=== PATIENT | male | born 1935 | race Caucasian/White ===

== ENCOUNTER 2020-06-10 08:07 | Outpatient (CLI) | payer MEDICARE, BC, SELFPAY ==
--- NOTE | ~2020-06-10 | US_ITS ---
EXAMINATION: US arterial ankle brachial ind DATE: 06/10/2020 08:39 INDICATION: Bilateral lower limb pain. TECHNIQUE: Segmental pressures and plethysmographic and Doppler waveforms of the brachial and lower e xtremity arteries were obtained. COMPARISON: None. FINDINGS: Right and left brachial artery pressures of 126 mm Hg and 129 mm Hg, respectively, are concordant (no rmal difference <= 30 mmHg). The right ankle-brachial index (EDWIN) is 1.08 (normal >= 0.9-1.0). The right great toe-brachial index (TBI) is 0.64 (normal >= 0.65). Arterial Doppler waveforms are biphasic with brisk systolic upstrokes at both the right posterior tibial and dorsalis pedis arteries. The left EDWIN is 1.17. The left TBI is 0.71. Arterial Doppler waveforms are biphasic with brisk systol ic upstrokes of both the left posterior tibial and dorsalis pedis arteries. IMPRESSION: 1. No significant arterial occlusive disease to either lower limb with normal bilateral ABIs and TBIs . Reviewed, dictated and finalized at location A. IMPRESSION: 1. No significant arterial occlusive disease to either lower limb with normal b ilateral ABIs and TBIs.
== END 2020-06-10 08:08 | disposition home or self-care (01) ==
LOC: ANHIMG 08:12
PROVIDERS: PCP Family Medicine; Visit Provider Nurse Practitioner Family
DX: M79.661 Pain in right lower leg (principal); M79.662 Pain in left lower leg; R09.89 Other specified symptoms and signs involving the circulatory and respiratory systems
CPT/HCPCS: 93922

== ENCOUNTER 2020-12-02 09:46 | Outpatient (CLI) | payer MEDICARE, BC, SELFPAY ==
--- NOTE | ~2020-12-02 | CT_ITS ---
EXAMINATION: CT knee RT wo con DATE: 12/02/2020 10:25 INDICATION: Right knee pain. Mechanical complication of implant. TECHNIQUE: Computed tomography (CT) of the right knee was performed without intravenous contrast. Aut omated exposure control and iterative reconstruction technique were employed. The dose-length product was 432.43 mGy-cm. COMPARISON: Right knee radiographs 10/04/2015 FINDINGS: There is a total right knee arthroplasty with patellar resurfacing in near-anatomic alignme nt. No fracture. There is lucency in the bone adjacent to the patellar component and its proximal med ial aspect measuring 3 mm in thickness. There is osteolysis of distal femur adjacent to the arthropla sty anteriorly and adjacent to the medial arthroplasty post. There is lucency in the bone adjacent to the tibial component medially and laterally. There is a small knee joint effusion. IMPRESSION: 1. Total right knee arthroplasty in near-anatomic alignment with osteolysis of bone adjacent to the a rthroplasty in all 3 compartments, consistent with particle disease versus infection. 2. Small knee joint effusion. Reviewed, dictated and finalized at location A. ROOM WORKER IMPRESSION: 1. Total right knee arthroplasty in near-anatomic alignment with osteolysis of bone adjacent to the arthroplasty in all 3 compartments, consistent with partic le disease versus infection. 2. Small knee joint effusion.
--- NOTE | ~2020-12-02 | NM_ITS ---
EXAMINATION: NM bone 3 phase DATE: 12/02/2020 13:05 INDICATION: Mechanical complication of implant. Right knee pain. TECHNIQUE: 24.9 mCi Tc-99m HDP was administered intravenously. Scintigrams of the knees were obtained in angiographic, blood pool, and delayed phases. COMPARISON: Right knee CT 12/02/2020 FINDINGS: There is a right knee arthroplasty. There is increased activity adjacent to the arthroplast y components on all phases. There is increased activity in left knee at the medial and patellofemoral compartments without radiographic comparison, likely osteoarthritis. IMPRESSION: 1. Total right knee arthroplasty with increased activity adjacent to the arthroplasty components on all phases correlating with areas of osteolysis on CT, consistent with particle disease versus infect ion. Reviewed, dictated and finalized at location A. ONOMETRY TUTOR IMPRESSION: 1. Total right knee arthroplasty with increased activity adjacent to the arthr oplasty components on all phases correlating with areas of osteolysis on CT, co nsistent with particle disease versus infection.
== END 2020-12-02 09:47 | disposition home or self-care (01) ==
LOC: ANHIMG 09:55
PROVIDERS: PCP Nurse Practitioner Family; Visit Provider Orthopaedic Surgery
DX: T85.698A Other mechanical complication of other specified internal prosthetic devices, implants and grafts, initial encounter (principal); M25.461 Effusion, right knee
CPT/HCPCS: 73700; 78315; A9561

== ENCOUNTER 2020-12-03 10:12 | Outpatient (CLI) | payer MEDICARE, BC, SELFPAY ==
[2020-12-03 10:57] LABS: CRP 0.5 mg/dL (<1.0)
[2020-12-03 11:00] LABS: Erythrocyte Sedimentation Rate 26 mm/hr (0-20)
== END 2020-12-03 10:13 | disposition home or self-care (01) ==
LOC: ANHLAB 10:17
PROVIDERS: PCP Nurse Practitioner Family; Visit Provider Orthopaedic Surgery
DX: T85.698A Other mechanical complication of other specified internal prosthetic devices, implants and grafts, initial encounter (principal)
CPT/HCPCS: 36415; 85652; 86140

== ENCOUNTER 2020-12-07 12:32 | Outpatient (CLI) | payer MEDICARE, BC, SELFPAY ==
--- NOTE | ~2020-12-07 | XR_ITS ---
EXAMINATION: XR lg joint inject/asp w image DATE: 12/07/2020 13:48 INDICATION: Mechanical complication of right knee arthroplasty. TECHNIQUE: A time-out was performed to verify the patient's name, date of , and procedure to b e performed. The procedure including the risks, benefits, and alternatives was discussed with the pat ient. Risks discussed included bleeding and infection. The patient understood the risks and agreed to proceed. The skin overlying the right knee joint was prepped and draped in usual sterile fashion. Anesthetic was administered with 1% lidocaine subcutaneously. An 18 G needle was advanced under fluo roscopic guidance into the joint. Fluid was aspirated. There were no immediate complications. Fluoro scopy exposure time was 0.1 minutes. The total number of images was 1. FINDINGS: Real-time fluoroscopy demonstrates the needle in the right knee joint. IMPRESSION: 1. Fluoroscopy-guided right knee joint aspiration yielding 5 mL orange-juli fluid. Reviewed, dictated and finalized at location A. D MATE IMPRESSION: 1. Fluoroscopy-guided right knee joint aspiration yielding 5 mL orange-juli fl uid.
[2020-12-07 17:30] LABS: Appearance Synovial Fluid Hazy (Clear); Color Synovial Fluid Yellow (Colorless); Lymphocytes Synovial Fluid 6 %; Neutrophils Synovial Fluid 14 % (0-25); RBC Synovial Fluid 200 /uL (0-0)
[2020-12-07 17:31] LABS: Nucleated Cell Synovial Fluid 41 /uL (0-200); Source Synovial Fluid Synovial fluid
== END 2020-12-07 12:33 | disposition home or self-care (01) ==
PROVIDERS: PCP Nurse Practitioner Family; Visit Provider Orthopaedic Surgery
DX: T84.032A Mechanical loosening of internal right knee prosthetic joint, initial encounter (principal)
CPT/HCPCS: 20610; 77002; 87070; 87075; 87076; 87077; 87205; 88108; 89051

== ENCOUNTER 2020-12-31 08:22 | Emergency (ER) | payer MEDICARE, BC, SELFPAY ==
--- NOTE | ~2020-12-31 | XR_ITS ---
EXAMINATION: XR abdomen/kub 1V EXAM DATE: 12/31/2020 08:55 INDICATION: Constipation, abdominal distention. TECHNIQUE: Frontal projection(s) of the abdomen for interpretation. There is no prior study for jeison srinivasan. FINDINGS: There is moderate to large amount of colonic stool and gas. No small bowel dilation, nono bstructive bowel gas pattern. Calcifications in the pelvis are believed to be phleboliths. There i s no organomegaly suspected. There are bony degenerative changes. IMPRESSION: Moderate to large amount of colonic stool. Reviewed, dictated and finalized at location D. OUT SCARFING OPERATOR
[2020-12-31 08:26] VITALS: BP 143/94; PULSE 73; RESP 18; TEMP 37.1; O2SAT 95
--- NOTE | 2020-12-31 08:26 | ED.MALEGU ---
HPI - Male Genitourinary General Chief complaint: Urogenital-Male Stated complaint: SCROTAL BLEEDING Time Seen by Provider: 12/31/20 08:25 History of Present Illness HPI Narrative: 85 yo male presents to the ED for scrotal bleeding. He reports that he had just finished urinating when he began bleeding profusely from his scrotum. He soaked through a towel before placing papertowels over the area and coming to the ED. On arrival here there is no active bleeding. Additionally he reports that he has issues with chronic constipation. He reports having to strain and only producing small pebel like stools. This has been happening for several months. He starting taking fiber without significant change. Related Data Allergies Allergy/AdvReac Type Severity Reaction Status Date / Time No Known Allergies Allergy Verified 12/31/20 08:34 Review of Systems Review of Systems: All systems reviewed & are unremarkable except as noted in HPI and below Constitutional: Constitutional: Denies fever(s) and Denies weakness Eyes: Eyes: Reports no additional eye complaints ENT: Denies dizziness Cardiovascular: Cardiovascular: Denies chest pain Respiratory: Respiratory: Denies dyspnea Gastrointestinal: Gastrointestinal: Denies abdominal pain and Denies nausea Genitourinary: Genitourinary: Denies hematuria, Denies oliguria, Denies dysuria and Denies urinary frequency Musculoskeletal: Musculoskeletal: Denies back pain Neurologic: Denies dizziness and Denies weakness Hematologic/Lymphatic: Hematologic/Lymphatic: Denies easy bleeding and Denies easy bruising PMFSH Past Medical History Medical History Diabetic mononeuropathy associated with type 2 diabetes mellitus Diminished pulses in lower extremity Dysphagia Essential (primary) hypertension Left-sided chest wall pain Sleep apnea in adult Ventral hernia with obstruction but no gangrene Vitamin D deficiency Surgical History Surgical History History of total right knee replacement (~2012) Social History Social History Smoking status: Never smoker Second hand tobacco smoke exposure: No Alcohol intake: never Gender identity (if verbalized by the patient): Male Exam Const: General: no acute distress and alert Orientation/consciousness: patient oriented x3 HENMT: Head: normal to inspection Resp: Effort & Inspection: normal respiratory effort Auscultation: clear to auscultation bilaterally Cardio: Rate: regular rate Rhythm: regular rhythm GI: Inspection: distended GI Palp: No Tenderness to palpation present (GI) Percussion: No Fluid wave present : Testes: no testicular swelling and no testicular tenderness Other: punctate wound on scrotum. No bleeding. Multiple small dilated veins. Skin: General skin exam: normal color Neuro: General: patient oriented x3, moves all extremities and no focal motor deficits Cranial nerves: Yes CN's II-XII intact bilaterally Speech: normal speech Gait exam (Neuro): Normal gait present Extrem: General: normal to inspection Course Vital Signs Vital signs: Vital Signs Temperature 37.1 C 12/31/20 08:26 Pulse Rate 73 12/31/20 08:26 Respiratory Rate 18 12/31/20 08:26 Blood Pressure 143/94 H 12/31/20 08:26 Pulse Oximetry 95 12/31/20 08:26 Temperature 37.1 C 12/31/20 08:26 Pulse Rate 62 12/31/20 10:41 Respiratory Rate 16 12/31/20 10:41 Blood Pressure 116/70 12/31/20 10:41 Pulse Oximetry 98 12/31/20 10:41 MDM - Male Genitourinary MDM Narrative Medical decision making narrative: No active bleeding. Dilated veins on scrotum are the most likely source of the blood. These probably arose due to straining from constipation. Enema produced a small amount of hard stool. He was givne magnesium citrate and I will have him start a stoo
[2020-12-31] MEDS: MAGNESIUM CITRATE 300 ML BTL PO (09:16)
--- NOTE | 2020-12-31 10:38 | PC.NURSE ---
pt passed approx 8-10 small hard pieces of stool after mag citrate and fleets. pt still feels constipated with abd bloating and discomfort
[2020-12-31 10:41] VITALS: BP 116/70; PULSE 62; RESP 16; O2SAT 98
== END 2020-12-31 10:56 | disposition home or self-care (01) ==
PROVIDERS: Emergency Provider Emergency Medicine
DX: N50.1 Vascular disorders of male genital organs (principal); K59.00 Constipation, unspecified; I10 Essential (primary) hypertension; G47.30 Sleep apnea, unspecified; E55.9 Vitamin D deficiency, unspecified; E11.41 Type 2 diabetes mellitus with diabetic mononeuropathy; Z96.651 Presence of right artificial knee joint
CPT/HCPCS: 74018; 99283; A9270

== ENCOUNTER 2021-02-07 09:13 | Outpatient (CLI) | payer MEDICARE, BC, SELFPAY | END 2021-02-07 09:14 | LOC: ANHCOVIDVC 09:14 | DX: Z23 Encounter for immunization (principal) | CPT/HCPCS: 0001A; 91300 ==

== ENCOUNTER 2021-02-28 09:14 | Outpatient (CLI) | payer MEDICARE, BC, SELFPAY | END 2021-02-28 09:15 | disposition home or self-care (01) | LOC: ANHCOVIDVC 09:14 | PROVIDERS: PCP Family Medicine | DX: Z23 Encounter for immunization (principal) | CPT/HCPCS: 0002A; 91300 ==

== ENCOUNTER → 2021-03-15 03:27 | Outpatient (CLI) | payer MEDICARE, BC, SELFPAY ==
[2021-03-15 20:31] LABS: SARS-CoV-2 RNA PCR Negative
== END ==
PROVIDERS: PCP Family Medicine; Visit Provider Internal Medicine Gastroenterology
DX: Z01.812 Encounter for preprocedural laboratory examination (principal); Z20.822 Contact with and (suspected) exposure to COVID-19
CPT/HCPCS: C9803; U0003; U0005

== ENCOUNTER 2021-03-17 11:36 | Day surgery (SDC) | payer MEDICARE, BC, SELFPAY ==
[2021-03-09 12:46] VITALS: BMI 26.6
[2021-03-17 12:08] VITALS: BMI 27.2
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
[2021-03-17 12:25] VITALS: BP 155/88; PULSE 58; RESP 18; TEMP 36.6; O2SAT 97
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
[2021-03-17] MEDS: LACTATED RINGERS 1,000 ML 150 ML IV CONT (12:27)
[2021-03-17] MEDS: BENZOCAINE (*SP) 60 ML SPRAY CAN (HURRICAINE) 1 SPRAY MUCOUS MEM (13:01)
[2021-03-17 13:14] VITALS: BP 107/63; PULSE 45; RESP 16; O2SAT 95
[2021-03-17 13:24] VITALS: BP 109/65; PULSE 44; RESP 17; O2SAT 93
[2021-03-17 13:34] VITALS: BP 129/75; PULSE 45; RESP 19; O2SAT 94
== END 2021-03-17 13:45 | disposition home or self-care (01) ==
PROVIDERS: PCP Family Medicine; Visit Provider Internal Medicine Gastroenterology
PROC: 0DJ08ZZ Inspection of Upper Intestinal Tract, Via Natural or Artificial Opening Endoscopic (ICD-10-PCS; CPT 43235; principal; 2021-03-17 13:15)
DX: R13.10 Dysphagia, unspecified (principal); K21.00 Gastro-esophageal reflux disease with esophagitis, without bleeding; K29.50 Unspecified chronic gastritis without bleeding; K44.9 Diaphragmatic hernia without obstruction or gangrene; K22.4 Dyskinesia of esophagus; K29.70 Gastritis, unspecified, without bleeding; E55.9 Vitamin D deficiency, unspecified; E53.8 Deficiency of other specified B group vitamins; I10 Essential (primary) hypertension
CPT/HCPCS: 43249; 43239; 88305; 88342; C1726; J2704; J7120

== ENCOUNTER 2021-11-30 10:11 | Outpatient (CLI) | payer MEDICARE, BC, SELFPAY ==
--- NOTE | ~2021-11-30 | XR_ITS ---
XR foot RT min 3V DATE: 11/30/2021 10:27 INDICATION: Great toe pain proximally. No known injury. TECHNIQUE: 4 views COMPARISON: None FINDINGS: There is diffuse osteopenia. Mild plantar calcaneal enthesopathy. There is prominent osteoarthritic change at the tibiotalar joint. No fracture or dislocation, periosteal reaction or bone destruction, erosive change. 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 ENT SUPPORT SERVICES DIRECTOR
== END 2021-11-30 10:12 | disposition home or self-care (01) ==
LOC: ANHIMG 10:15
PROVIDERS: PCP Family Medicine; Visit Provider Family Medicine
DX: M85.871 Other specified disorders of bone density and structure, right ankle and foot (principal); M77.31 Calcaneal spur, right foot; M19.071 Primary osteoarthritis, right ankle and foot
CPT/HCPCS: 73630

== ENCOUNTER 2022-08-19 16:43 | Emergency (ER) | payer MEDICARE, BC, SELFPAY ==
[2022-08-19 16:48] VITALS: BP 165/66; PULSE 63; RESP 16; TEMP 37.1; O2SAT 95
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
[2022-08-19 18:24] VITALS: BP 116/68; PULSE 59; RESP 16; O2SAT 96
== END 2022-08-19 18:20 | disposition home or self-care (01) ==
PROVIDERS: Emergency Provider Emergency Medicine; PCP Family Medicine
DX: L03.012 Cellulitis of left finger (principal); I10 Essential (primary) hypertension; R73.03 Prediabetes; G47.30 Sleep apnea, unspecified; E53.8 Deficiency of other specified B group vitamins; E55.9 Vitamin D deficiency, unspecified; Z96.651 Presence of right artificial knee joint
CPT/HCPCS: 10060; 99283

== ENCOUNTER 2022-08-28 09:45 | Outpatient (CLI) | payer MEDICARE, BC, SELFPAY ==
[2022-08-28 20:06] LABS: Alanine Aminotransferase 35 U/L (6-50); Alkaline Phosphatase 193 U/L (38-126); Anion Gap 9 mmol/L (8-16); Aspartate Amino Transferase 46 U/L (17-59); Bilirubin,Total 0.4 mg/dL (0.2-1.3); Blood Urea Nitrogen 19 mg/dL (9-20); Calcium 9.5 mg/dL (8.4-10.2); Carbon Dioxide 23 mmol/L (22-30); Chloride 107 mmol/L (98-107); Estimated Glomerular Filt Rate > 60; Glucose 135 mg/dL (65-110); Potassium 4.6 mmol/L (3.4-5.0); Sodium 139 mmol/L (137-145)
[2022-08-28 20:36] LABS: Prostate Specific Antigen 6.8 ng/mL (< OR = 4.0)
== END 2022-08-28 09:46 | disposition home or self-care (01) ==
PROVIDERS: PCP Family Medicine; Visit Provider Family Medicine
DX: R73.03 Prediabetes (principal); I10 Essential (primary) hypertension; Z12.5 Encounter for screening for malignant neoplasm of prostate; G47.30 Sleep apnea, unspecified
CPT/HCPCS: 36415; 80053; 83036; 84153; G0103

== ENCOUNTER 2022-12-09 09:38 | Outpatient (CLI) | payer MEDICARE, BC, SELFPAY ==
--- NOTE | ~2022-12-09 | XR_ITS ---
XR foot RT 2V DATE: 12/09/2022 10:03 INDICATION: Right foot pain, great toe swelling TECHNIQUE: AP and lateral views COMPARISON: 11/30/2021 right foot FINDINGS: There is osteopenia. There is prominent osteophyte is at the tibiotalar joint. Mild plantar calcaneal enthesopathy. No recent fracture or dislocation, periosteal reaction or bone destruction is evident. No erosive stephanie nge. IMPRESSION: Osteopenia Tibiotalar osteoarthritis Mild plantar calcaneal enthesopathy Reviewed, dictated and finalized at location A. UTER LAB ASSISTANT
== END 2022-12-09 09:39 | disposition home or self-care (01) ==
PROVIDERS: PCP Family Medicine; Visit Provider Nurse Practitioner
DX: M85.871 Other specified disorders of bone density and structure, right ankle and foot (principal); M19.071 Primary osteoarthritis, right ankle and foot; M77.31 Calcaneal spur, right foot
CPT/HCPCS: 73620

== ENCOUNTER 2023-03-19 14:21 | Outpatient (CLI) | payer MEDICARE, BC, SELFPAY ==
[2023-03-19 18:40] LABS: Uric Acid 5.7 mg/dL (3.5-8.5)
== END 2023-03-19 14:22 | disposition home or self-care (01) ==
LOC: ANHGOSHLAB 14:22
PROVIDERS: PCP Family Medicine; Visit Provider Nurse Practitioner
DX: M79.676 Pain in unspecified toe(s) (principal)
CPT/HCPCS: 36415; 84550

== ENCOUNTER 2023-08-24 13:44 | Outpatient (CLI) | payer MEDICARE, BC, SELFPAY ==
[2023-08-24 16:36] LABS: Basophils Absolute Auto 0.1 K/mm3 (0.0-0.1); Basophils Percent Auto 0.4 % (0.2-1.2); Eosinophils Absolute Auto 0.3 K/mm3 (0-0.3); Eosinophils Percent Auto 2.2 % (0-4.4); Hematocrit 39.5 % (42.0-52.0); Hemoglobin 12.1 g/dL (14.0-18.0); Immature Granulocyte Absolute 0.02 K/mm3 (0.00-0.031); Immature Granulocyte Percent A 0.2 % (0-0.5); Lymphocytes Absolute Auto 2.29 K/mm3 (0.9-3.2); Lymphocytes Percent Auto 19.4 % (18.3-44.2); Mean Corpuscular HGB Conc 30.6 g/dl (32-36); Mean Corpuscular Hemoglobin 27.9 pg (26-34); Mean Platelet Volume 9.1 fl (7.4-10.4); Monocytes Absolute Auto 0.8 K/mm3 (0.1-0.6); Monocytes Percent Auto 6.8 % (2.6-8.5); Neutrophils Absolute Auto 8.4 K/mm3 (1.3-6.7); Platelet Count Result 316 k/mm3 (150-375); Red Blood Count 4.34 M/mm3 (4.6-6.20); Red Cell Distribution Width 14.3 % (11.5-14.5); White Blood Count 11.8 K/mm3 (4.5-10.0)
[2023-08-24 20:04] LABS: Alanine Aminotransferase 18 U/L (6-50); Albumin Level 4.3 g/dL (3.5-5.1); Alkaline Phosphatase 136 U/L (38-126); Anion Gap 7 mmol/L (8-16); Aspartate Amino Transferase 34 U/L (17-59); Bilirubin,Total 0.5 mg/dL (0.2-1.3); Blood Urea Nitrogen 22 mg/dL (9-20); Calcium 9.5 mg/dL (8.4-10.2); Carbon Dioxide 28 mmol/L (22-30); Chloride 104 mmol/L (98-107); Estimated Glomerular Filt Rate > 60; Glucose 93 mg/dL (65-110); Potassium 4.8 mmol/L (3.4-5.0); Sodium 139 mmol/L (137-145); Uric Acid 6.3 mg/dL (3.5-8.5)
[2023-08-28 03:48] LABS: Vitamin D 1,25 (OH)2 Total 27 pg/mL (18-72); Vitamin D2 1,25 (OH)2 <8 pg/mL; Vitamin D3 1,25 (OH)2 27 pg/mL
== END 2023-08-24 13:45 | disposition home or self-care (01) ==
PROVIDERS: PCP Family Medicine; Visit Provider Nurse Practitioner Family
DX: M79.674 Pain in right toe(s) (principal); E55.9 Vitamin D deficiency, unspecified; I10 Essential (primary) hypertension
CPT/HCPCS: 36415; 80053; 82652; 84550; 85025

== ENCOUNTER 2023-10-09 12:08 | Outpatient (CLI) | payer MEDICARE, BC, SELFPAY ==
[2023-10-09 13:12] LABS: CRP 2.9 mg/dL (<1.0)
[2023-10-09 13:23] LABS: Erythrocyte Sedimentation Rate 103 mm/hr (0-20)
== END 2023-10-09 12:09 | disposition home or self-care (01) ==
PROVIDERS: PCP Family Medicine
DX: Z96.651 Presence of right artificial knee joint (principal)
CPT/HCPCS: 36415; 85652; 86140

== ENCOUNTER → 2023-11-09 09:19 | Outpatient (CLI) | payer MEDICARE, BC, SELFPAY ==
--- NOTE | ~2023-11-09 | XR_ITS ---
EXAMINATION: XR foot RT min 3V DATE: 11/09/2023 09:37 INDICATION: Erythema medial to right first metatarsophalangeal joint. TECHNIQUE: 4 views of right foot were obtained. COMPARISON: Right foot radiographs 12/09/2022 FINDINGS: Bone alignment is normal. No fracture. There is mild osteoarthritis of first metatarsophala ngeal joint and some of the interphalangeal joints and midfoot joints. There is at least moderate ost eoarthritis of the ankle joint. There are enthesophytes at the posterior and plantar aspects of calca fransico tuberosity. IMPRESSION: 1. Polyarticular osteoarthritis. Reviewed, dictated and finalized at location A. CHING MACHINE OPERATOR
== END ==
PROVIDERS: PCP Nurse Practitioner Family; Visit Provider Nurse Practitioner Family
DX: M19.071 Primary osteoarthritis, right ankle and foot (principal); L53.8 Other specified erythematous conditions; M10.9 Gout, unspecified; E11.9 Type 2 diabetes mellitus without complications
CPT/HCPCS: 73630

== ENCOUNTER 2024-05-16 10:01 | Emergency (ER) | payer MEDICARE, BC, SELFPAY ==
--- NOTE | ~2024-05-16 | XR_ITS ---
EXAMINATION: XR wrist LT min 3V DATE: 05/16/2024 12:09 INDICATION: Radial sided right wrist pain TECHNIQUE: Posteroanterior, ulnar deviation, oblique, and lateral views of the right wrist were obtai taty. COMPARISON: none FINDINGS: Old healed fracture deformity at the distal radius. Likely secondary to millimeter ulnar positive cami iance. Alignment is otherwise normal. No acute fracture. Severe osteoarthritis at the first carpometa carpal joint. Moderate osteoarthritis at the first metacarpophalangeal joint and mild osteoarthritis at the wrist, midcarpal, triscaphe and at the visualized interphalangeal joints. Likely secondary sub articular cystic change at the proximal pole of the scaphoid. IMPRESSION: 1. 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 No acute osseous abnormality. Reviewed, dictated and finalized at location A. IMPRESSION: 1. 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 No acute osseous abnormality.
[2024-05-16 10:02] VITALS: BP 151/100; PULSE 69; RESP 18; TEMP 37.6; O2SAT 97
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
[2024-05-16] MEDS: ACETAMINOPHEN 325 MG TABLET 650 MG PO (12:46)
[2024-05-16 13:00] LABS: Basophils Percent Auto 0.2 % (0.2-1.2); Hematocrit 35.8 % (42.0-52.0); Hemoglobin 10.8 g/dL (14.0-18.0); Immature Granulocyte Absolute 0.09 K/mm3 (0.00-0.031); Immature Granulocyte Percent A 0.5 % (0-0.5); Lymphocytes Absolute Auto 1.16 K/mm3 (0.9-3.2); Mean Corpuscular HGB Conc 30.2 g/dl (32-36); Mean Corpuscular Hemoglobin 25.4 pg (26-34); Mean Platelet Volume 8.8 fl (7.4-10.4); Monocytes Absolute Auto 1.7 K/mm3 (0.1-0.6); Monocytes Percent Auto 10.2 % (2.6-8.5); Neutrophils Absolute Auto 13.6 K/mm3 (1.3-6.7); Neutrophils Percent Auto 82.1 % (45.5-73.1); Platelet Count Result 359 k/mm3 (150-375); Red Blood Count 4.26 M/mm3 (4.6-6.20); Red Cell Distribution Width 16.5 % (11.5-14.5); White Blood Count 16.6 K/mm3 (4.5-10.0)
[2024-05-16 13:10] LABS: Alanine Aminotransferase 18 U/L (6-50); Alkaline Phosphatase 153 U/L (38-126); Anion Gap 5 mmol/L (4-12); Aspartate Amino Transferase 31 U/L (17-59); Bilirubin,Total 1.2 mg/dL (0.2-1.3); Blood Urea Nitrogen 24 mg/dL (9-20); Calcium 9.1 mg/dL (8.4-10.2); Carbon Dioxide 28 mmol/L (22-30); Chloride 104 mmol/L (98-107); Estimated CRCL calculation 56 ml/min; Estimated Glomerular Filt Rate > 60; Glucose 127 mg/dL (65-110); Potassium 4.3 mmol/L (3.4-5.0); Sodium 137 mmol/L (137-145)
[2024-05-16 13:22] VITALS: BP 110/70; PULSE 85; RESP 14; TEMP 37.6; O2SAT 95
[2024-05-16 14:39] LABS: Appearance Urine Turbid (Clear); Bacteria Urine 4+ /hpf; Bilirubin Urine Negative (Negative); Blood Urine 2+ (Negative); Color Urine Dark Yellow (Yellow); Glucose Urine UA Negative (Negative); Ketones Urine Negative (Negative); Leukocyte Esterase Ur 3+ LEU/UL (Negative); Need Manual Microscopic Reviewed; Nitrate Urine Positive (Negative); Protein Urine 3+ mg/dL (Negative); RBC Urine 21-50 /hpf (0-2); Specific Grav Ur 1.019 (1.001-1.035); Squamous Epithelial Cell Urine None Seen /hpf (Few); WBC Urine >100 /hpf (0-3); pH Urine 7.5 (5.0-9.0)
[2024-05-16 14:41] LABS: Add Urine Microscopic? YES
[2024-05-16 15:34] VITALS: BP 102/45; PULSE 57; RESP 15; TEMP 36.6; O2SAT 96
== END 2024-05-16 15:38 | disposition home or self-care (01) ==
PROVIDERS: Emergency Provider Physician Assistant; PCP Family Medicine
DX: L03.114 Cellulitis of left upper limb (principal); N39.0 Urinary tract infection, site not specified; I10 Essential (primary) hypertension; R73.03 Prediabetes; E53.8 Deficiency of other specified B group vitamins; E55.9 Vitamin D deficiency, unspecified; G47.30 Sleep apnea, unspecified; Z96.651 Presence of right artificial knee joint
CPT/HCPCS: 36415; 73110; 80053; 81001; 85025; 87086; 87088; 99283; A9270

== ENCOUNTER 2024-05-30 14:24 | Outpatient (CLI) | payer MEDICARE, BC, SELFPAY ==
--- NOTE | ~2024-05-30 | CT_ITS ---
EXAMINATION: CT abdomen pelvis wo con DATE: 05/30/2024 14:57 INDICATION: Atonic bladder. TECHNIQUE: Computed tomography (CT) of the abdomen and pelvis was performed without intravenous contr ast. Automated exposure control and iterative reconstruction technique were employed. The dose-length product was 732.02 mGy-cm. COMPARISON: None. FINDINGS: The visualized portions of the lung bases demonstrate mild atelectasis. No pleural effusion . Cardiomegaly is noted. There are coronary artery calcifications. There is a trace pericardial effus ion. There is a small sliding hiatal hernia. The liver, gallbladder, spleen, pancreas, adrenal glands , and right kidney are normal. There are cysts in left kidney measuring up to 3.5 cm. The prostate is moderately enlarged. The bladder is compressed by a Gipson catheter. There are multiple diverticula i n the bladder. There is a 5 mm stone in a bladder diverticulum on the left. There is diverticulosis o f the colon without evidence of diverticulitis. There are no dilated loops of bowel. The appendix is normal. Aortic atherosclerosis is noted. There is mild right external iliac, left common iliac, left para-aortic, and aortocaval lymphadenopathy, likely reactive. There is no free intraperitoneal fluid. There is mild lumbar spondylosis. There is a chronic compression fracture of T11. IMPRESSION: 1. Multiple bladder diverticula. 2. Stone in a left bladder diverticulum. 3. Mild pelvic and retroperitoneal lymphadenopathy, likely reactive. Reviewed, dictated and finalized at location A.
== END 2024-05-30 14:25 | disposition home or self-care (01) ==
PROVIDERS: PCP Family Medicine; Visit Provider Urology
DX: N31.2 Flaccid neuropathic bladder, not elsewhere classified (principal); N32.3 Diverticulum of bladder
CPT/HCPCS: 74176

== ENCOUNTER 2024-06-11 10:08 | Emergency (ER) | payer MEDICARE, BC, SELFPAY ==
[2024-06-11 10:09] VITALS: BP 150/79; PULSE 96; RESP 20; TEMP 36.6; O2SAT 97
[2024-06-11 10:15] VITALS: BP 137/91; PULSE 96; RESP 16; O2SAT 94
[2024-06-11 11:15] VITALS: BP 116/97; PULSE 92; RESP 18; O2SAT 96
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
[2024-06-11 12:15] VITALS: BP 149/88; PULSE 94; RESP 20; O2SAT 98
[2024-06-11 12:44] LABS: Appearance Urine Turbid (Clear); Bacteria Urine 4+ /hpf; Bilirubin Urine 1+ (Negative); Blood Urine 3+ (Negative); Color Urine Red (Yellow); Glucose Urine UA Negative (Negative); Ketones Urine Negative (Negative); Leukocyte Esterase Ur 3+ LEU/UL (Negative); Need Manual Microscopic Reviewed; Nitrate Urine Positive (Negative); Non Pathogenic Casts >20; Protein Urine 3+ mg/dL (Negative); RBC Urine >100 /hpf (0-2); Specific Grav Ur 1.016 (1.001-1.035); Squamous Epithelial Cell Urine Many /hpf (Few); Triple Phosphate Crystal Urine Present /hpf; Urobilinogen Urine 0.2 mg/dL (<2.0); WBC Urine >100 /hpf (0-3)
[2024-06-11 12:46] LABS: Add Urine Microscopic? YES
--- NOTE | 2024-06-11 12:48 | PC.NURSE ---
Pts indwelling catheter bag changed to leg bag.
== END 2024-06-11 12:49 | disposition home or self-care (01) ==
PROVIDERS: Emergency Provider Emergency Medicine; PCP Family Medicine
DX: T83.098A Other mechanical complication of other urinary catheter, initial encounter (principal); I10 Essential (primary) hypertension; E53.8 Deficiency of other specified B group vitamins; E55.9 Vitamin D deficiency, unspecified; R73.03 Prediabetes; Z96.651 Presence of right artificial knee joint; Z79.899 Other long term (current) drug therapy; Y84.6 Urinary catheterization as the cause of abnormal reaction of the patient, or of later complication, without mention of misadventure at the time of the procedure
CPT/HCPCS: 51702; 81001; 87086; 99283

== ENCOUNTER 2024-06-26 01:13 | Day surgery (SDC) | payer MEDICARE, BC, SELFPAY ==
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
[2024-06-10 15:25] VITALS: BMI 25.1
--- NOTE | 2024-06-10 15:53 | PC.NURSE ---
Report to the Outpatient Waiting Room, entrance under the green pavilion located off [facility], at time __10:00AM on date ___06/26/24____. Planned Procedure Time: __12:00PM . Time changes happen often and if your time is changed the preop area will call you the afternoon before. - You and your visitor will be asked to self-screen and do not enter if you have any COVID symptoms. - A mask is optional within the hospital at this time. Patients may have clear liquids (water, carbonated beverages, clear teas, apple juice) until 3 hours prior to surgery with a maximum of 20 ounces. - No food from midnight until time of surgery - Infants may have breast milk until 4 hours before surgery, infant formula 6 hours prior to surgery. - Children will be allowed to drink immediately following surgery. If applicable, please bring a bottle or sippy cup to assist with drinking. Juice, water, soda, and popsicles are readily available. For infants on formula, please bring formula the day of surgery. Pacifiers are allowed. Take the following medications with a SIP of water the morning of surgery: ___AMLODIPINE DO NOT STOP ANY OF YOUR OTHER PRESCRIPTION MEDICATIONS PRIOR TO SURGERY ?EXCEPT THE FOLLOWING Medications to discontinue per physician ___HOLD ALL VITAMINS/SUPPLEMENTS 3 DAYS PRE-OP PER ANESTHESIA Date to take last dose 06/22/24 Please no make-up, nail costa rican, hairspray, perfume, deodorant, or body powder the day of surgery. No jewelry (including any body piercings) or valuables the day of surgery, leave them at home. Please take a shower or bath the night before, or the morning of, surgery with an antibacterial soap. Wear comfortable, loose fitting clothing. Children are encouraged to wear pajamas. - Jewelry must be removed prior to entering the operating room. Rings and piercings that are not removed may be cut off. - The hospital will not accept responsibility for valuables. - Please leave all valuables, including medications, at home the day of surgery. If you are going home after surgery, a licensed class b driver must drive you home. - NO public transportation without another adult if you receive anesthesia. - We recommend that an adult stay with you for 24 hours following discharge. - We also recommend that you do not drive, make important decision, drink alcoholic beverages, or take any drugs that were not prescribed by your health care provider for at least 24 hours after your discharge time. For Pediatric surgeries, we recommend two adults accompany the child home. Follow any additional instructions given to you from your surgeon. If you or anyone in your household have experienced Covid symptoms in the past week, please notify your surgeon or the nurse liaison at the phone number below for possible testing. Telephone instructions given to ___PATIENT and asked if any additional questions and then verbalized understanding. Patient advised to call surgeon office or pre surgery nurse liaison [phone] if any additional questions.
[2024-06-26] VITALS (12 sets, daily range): BP systolic 108–176; BP diastolic 61–88; PULSE 54–97; RESP 14–18; TEMP 35.7–36.9; O2SAT 94–100
--- NOTE | 2024-06-26 05:33 | WPDHPUPDATE1 ---
History and Physical Update Update Date/Time: 06/26/24 05:33 History and Physical has been reviewed, including an updated exam of the patient. There are NO changes in the patient's condition. Risks, benefits, and alternatives have been discussed and questions answered. Patient agrees to proceed with procedure.
--- NOTE | 2024-06-26 06:18 | WPDHPUPDATE1 ---
History and Physical Update Update Date/Time: 06/26/24 06:18 History and Physical has been reviewed, including an updated exam of the patient. There are NO changes in the patient's condition. Risks, benefits, and alternatives have been discussed and questions answered. Patient agrees to proceed with procedure.
[2024-06-26] MEDS: LACTATED RINGERS 1,000 ML 30 ML IV CONT (09:45)
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
[2024-06-26] MEDS: ceFAZolin 2 GM/D5W 50 ML 2 GM/50 ML BAG IVPB (12:04)
--- NOTE | 2024-06-26 13:34 | P.OP_ITS ---
Procedure Note - Detailed Date of Procedure 06/26/24 Pre-op Diagnosis BPH Post-op Diagnosis Same Procedure Performed TURP Surgeon Carrillo Nails MD Anesthesia General Description of Procedure The patient was brought to the operative suite where he is prepped and draped in routine sterile fashion while in the dorsal lithotomy position after the uneventful induction of a LMA anesthetic. A 27 Malay resectoscope sheath was placed into his bladder. He had no urethral strictures. The patient had trilobar hyperplasia with a small median lobe. The bladder itself was endoscopically normal, showing no mucosal hyperemia, intravesical neoplasm or foreign bodies. There was a single, orthotopic ureteral orifice bilaterally. These orifices were identified and preserved throughout the remainder of the procedure. Attention was first turned to resection of the median lobe. This resection was undertaken from the bladder neck to the verumontanum and carried out until the transverse fibers of the bladder neck were identified. The left lateral lobe was then resected starting at the 6 o'clock position, working counter clockwise to the 12 o'clock position. Again, resection was carried out from the bladder neck to the verumontanum until the capsular fibers of the prostate were identified. The right lateral lobe was resected in a similar fashion starting at the 6 o'clock position working clockwise to the 12 o'clock position and carried out until the capsular fibers of the prostate were identified. Apical tissue was then circumferentially resected. All chips were evacuated from the bladder using an [employer] evacuator. Hemostasis was obtained with electric cautery. The ureteral orifices were again inspected and found to be without injury. Estimated blood loss throughout this procedure was 50cc. The patient was taken to recovery room having tolerated this well. Estimated Blood Loss 50 Drains Yes Packing No Pathology None sent Complications No immediate complications Condition Stable
[2024-06-26] MEDS: fentaNYL CITRATE INJ (*CRX) 100 MCG/2 ML VIAL 25 MCG IV PUSH ×3 (13:55→14:15)
[2024-06-26] MEDS: HYOSCYAMINE SULFATE 0.125 MG TABLET SUBLINGUAL (14:44)
--- NOTE | 2024-06-26 15:26 | PC.NURSE ---
This patient, Sp Cody, was admitted to [address] [place] [address] Room 307-02. Patient/family oriented to hospital policies and general routines including ID bracelet, bed and alarms, visiting hours, pain management, procedures, bathroom and other care routines, personal items, smoking policy, room service/diet, and visiting hours. Information on how to activate the Rapid Response Team has been discussed. Patient/Family are encouraged to report perceived risks to care and to ask questions if they do not understand what they are told or what they should do.
[2024-06-26] MEDS: DEXTROSE 5%/LACTATED RINGERS 1,000 ML 125 ML IV CONT ×2 (15:40→23:47)
[2024-06-26] MEDS: DOCUSATE SODIUM 100 MG CAPSULE PO (17:38)
[2024-06-26] MEDS: ceFAZolin 1 GM/NS 50 ML 1 GM/50 ML BAG IVPB (19:53)
[2024-06-27] MEDS: ceFAZolin 1 GM/NS 50 ML 1 GM/50 ML BAG IVPB (03:04)
[2024-06-27 03:53] VITALS: BP 163/71; PULSE 71; RESP 18; TEMP 36.8; O2SAT 96
[2024-06-27 05:44] LABS: Hematocrit 31.1 % (42.0-52.0); Hemoglobin 9.4 g/dL (14.0-18.0)
[2024-06-27 05:55] LABS: Anion Gap 6 mmol/L (4-12); Blood Urea Nitrogen 16 mg/dL (9-20); Calcium 8.3 mg/dL (8.4-10.2); Carbon Dioxide 27 mmol/L (22-30); Chloride 100 mmol/L (98-107); Estimated CRCL calculation 70 ml/min; Estimated Glomerular Filt Rate > 60; Glucose 128 mg/dL (65-110); Potassium 3.7 mmol/L (3.4-5.0); Sodium 133 mmol/L (137-145)
--- NOTE | 2024-06-27 06:05 | WPDUROPN2 ---
Progress Note: A&P Assessment and Plan (1) BPH w urinary obs/LUTS: Code(s): N40.1 - Benign prostatic hyperplasia with lower urinary tract symptoms; N13.8 - Other obstructive and reflux uropathy Status: Acute Assessment and Plan: Doing well POD #1 Stop CBI now / voiding trial later this morning if urine remains clear. Subjective Subjective Date/Time Seen: 06/27/24 06:05 Interval history: Comfortable, no complaints Review of Systems Review of Systems: All systems reviewed & are unremarkable except as noted in HPI and below Exam Const: General: no acute distress Resp: Effort & Inspection: normal respiratory effort GI: Inspection: non-distended GI Palp: No abdominal tenderness and No Guarding due to palpation present (GI) Auscultation: normal bowel sounds Urinary Catheter: Urinary Catheter: patent and draining and urine clear Objective Data Vital Signs Vital Signs: Vital Signs - 24 hr 06/26/24 13:25 06/26/24 13:40 06/26/24 13:55 Temperature 97.0 F L Pulse Rate 54 L 56 L 56 L Respiratory Rate 14 18 18 Blood Pressure 138/80 173/88 H 176/86 H Pulse Oximetry 100 100 99 Oxygen Delivery Simple Face Mask Simple Face Mask Room Air Oxygen Flow Rate 8 8 06/26/24 14:10 06/26/24 14:25 06/26/24 14:40 Temperature Pulse Rate 57 L 58 L 59 L Respiratory Rate 16 14 16 Blood Pressure 162/86 H 172/86 H 176/85 H Pulse Oximetry 98 94 98 Oxygen Delivery Room Air Room Air Room Air Oxygen Flow Rate 06/26/24 15:05 06/26/24 15:20 06/26/24 15:50 Temperature 96.3 F L 96.6 F L 97.0 F L Pulse Rate 60 79 73 Respiratory Rate 16 18 18 Blood Pressure 154/74 H 108/76 117/61 Pulse Oximetry 99 97 95 Oxygen Delivery Oxygen Flow Rate 06/26/24 16:00 06/26/24 16:50 06/26/24 20:00 Temperature 97.4 F L 98.4 F Pulse Rate 97 62 Respiratory Rate 16 16 Blood Pressure 145/65 H 162/63 H Pulse Oximetry 97 94 Oxygen Delivery Room Air Oxygen Flow Rate 06/26/24 20:00 06/26/24 23:58 06/27/24 03:53 Temperature 98.5 F 98.3 F Pulse Rate 66 71 Respiratory Rate 16 18 Blood Pressure 149/79 H 163/71 H Pulse Oximetry 95 96 Oxygen Delivery Room Air Oxygen Flow Rate Intake/Output Intake/Output: Intake & Output 06/24/24 06/25/24 06/26/24 06/27/24 23:59 23:59 23:59 23:59 Intake Total 7350 Output Total 7050 1550 Balance 300 -1550 Meds/Results Medications: Active Medications Generic Name Dose Route Start Last Admin Trade Name Freq PRN Reason Stop Dose Admin Hydrocodone Bitart/Acetaminophen 1 tab 06/26/24 14:46 Hydrocodone/Acetaminophen (*Crx) 5-325 Mg Tablet PO Q4H PRN Pain Rated 1-6 Cephalexin HCl 500 mg 06/27/24 12:00 Cephalexin 500 Mg Capsule PO Q6HR HILARY Docusate Sodium 100 mg 06/26/24 17:00 06/26/24 17:38 Docusate Sodium 100 Mg Capsule PO 100 mg BID HILARY Administration Hyoscyamine 0.125 mg 06/26/24 14:41 06/26/24 14:44 Hyoscyamine Sulfate 0.125 Mg Tablet SUBLINGUAL 0.125 mg Q6H PRN Administration Bladder Spasm Dextrose/Lactated Ringer's 1,000 mls @ 125 mls/hr 06/26/24 14:46 06/26/24 23:47 Dextrose 5%/Lactated Ringers IV CONT 125 mls/hr .Q8H HILARY Administration Lisinopril 40 mg 06/27/24 09:00 Lisinopril 20 Mg Tablet PO DAILY HILARY Morphine Sulfate 2 mg 06/26/24 14:46 Morphine Sulfate (*Crx) 2 Mg/Ml Inj IV PUSH Q2H PRN Pain Rated 7-10 Naloxone HCl 0.1 mg 06/26/24 14:46 Naloxone Hcl 0.4 Mg/Ml Vial IV PUSH Q2M PRN Opiate Reversal Ondansetron HCl 4 mg 06/26/24 14:46 Ondansetron Inj 4 Mg/2 Ml Vial IV PUSH Q12H PRN Nausea And Vomiting Labs Labs: Laboratory Results - last 24 hr 06/27/24 05:23 Hgb 9.4 L Hct 31.1 L Sodium 133 L Potassium 3.7 Chloride 100 Carbon Dioxide 27 Anion Gap 6 BUN 16 Creatinine 0.70 Estim Creat Clear Calc 70 Estimated GFR > 60 Glucose 128 H Calcium 8.3 L
[2024-06-27 07:41] VITALS: BP 157/80; PULSE 84; RESP 20; TEMP 37.1; O2SAT 94
[2024-06-27] MEDS: DEXTROSE 5%/LACTATED RINGERS 1,000 ML 125 ML IV CONT (08:25)
[2024-06-27] MEDS: lisinopriL 20 MG TABLET 40 MG PO (08:27)
[2024-06-27] MEDS: DOCUSATE SODIUM 100 MG CAPSULE PO (08:27)
--- NOTE | 2024-06-27 11:27 | WPDANESPN ---
Anes - Prog Note Post-Op Date/Time: 06/27/24 11:27 Cardiovascular status: normal Respiratory status: normal Airway patency: baseline Mental status: baseline Post-Op hydration status: normal Vital Signs: Last Vital Signs Temp 37.1 C 06/27/24 07:41 Pulse 84 06/27/24 07:41 Resp 20 06/27/24 07:41 BP 157/80 H 06/27/24 07:41 Pulse Ox 94 06/27/24 07:41 O2 Del Method Room Air 06/27/24 08:25 O2 Flow Rate 8 06/26/24 13:40 Pain Score (VAS): 0 I/O: Intake & Output 06/26/24 06/27/24 06/27/24 23:59 07:59 15:59 Intake Total 1050 1000 240 Output Total 1550 1550 1400 Balance -500 -550 -1160 Laboratory Tests 06/27/24 05:23 06/27/24 05:23 06/27/24 05:23 Hgb 9.4 L Hct 31.1 L Sodium 133 L Potassium 3.7 Chloride 100 Carbon Dioxide 27 Anion Gap 6 BUN 16 Creatinine 0.70 Estim Creat Clear Calc 70 Estimated GFR > 60 Glucose 128 H Calcium 8.3 L Post-procedural complaints: none Patient Feedback: Patient satisfied with anesthetic care.
[2024-06-27] MEDS: CEPHALEXIN 500 MG CAPSULE PO (11:57)
[2024-06-27 12:00] VITALS: BP 127/55; PULSE 71; RESP 18; TEMP 36.8; O2SAT 96
--- NOTE | 2024-06-27 15:55 | PM.DS ---
DS: Admitting Diagnosis Discharge Date 06/27/2024 Admitting Diagnosis BPH, urinary retention DS: Discharge Diagnosis Discharge Diagnosis (1) BPH w urinary obs/LUTS: Code(s): N40.1 - Benign prostatic hyperplasia with lower urinary tract symptoms; N13.8 - Other obstructive and reflux uropathy Status: Acute (2) Urinary retention: Code(s): R33.9 - Retention of urine, unspecified Status: Acute DS: Summary Hospital Course Hospital Course: This patient with longstanding prostatism refractory for medical management was admitted on the morning of his planned TURP. The procedure was undertaken on that same day in an uneventful fashion. His post-operative course was, likewise, uneventful. On the evening of the procedure he was tolerating a diet. On POD#1 his urine was clear on CBI. The urine remained clear and, therefore, the catheter was removed late morning. The patient was observed for several hours, until he demonstrated he could void effectively without significant hematuria. He was discharged with careful instruction on limiting physical activity x2 weeks and plans to f/ in 2-3 weeks. At discharge he was comfortable and tolerating a diet. Time Spent with Patient Time attestation: Total time spent providing and/or coordinating discharge services: DS: Data Data Completed and Pending Completed studies during hospitalization: Pending at discharge 06/26/24 12:36 Surgical [PTH] Routine Labs on day of discharge: Labs from last 24 hours 06/27/24 05:23 Hgb 9.4 L Hct 31.1 L Sodium 133 L Potassium 3.7 Chloride 100 Carbon Dioxide 27 Anion Gap 6 BUN 16 Creatinine 0.70 Estim Creat Clear Calc 70 Estimated GFR > 60 Glucose 128 H Calcium 8.3 L Discharge Plan Discharge Patient Disposition: Home, Self-Care Discharge Instructions: 1) Activity: No lifting/straining >15lbs. x2 weeks. 2) Diet: Resume normal pre-admission diet. 3) Follow-up: 2-3 weeks / call office for appointment ([phone]). Stand Alone Forms: General Discharge Instructions Discharge Orders: Discharge Order (Routine); Ordered 06/27/24 Ordered By: Carrillo Nails Discharge Medications: New cephalexin 500 mg capsule 500 mg PO Q8H Qty: 9 0RF docusate sodium [Colace] 100 mg capsule 100 mg PO DAILY Qty: 30 0RF hydrocodone-acetaminophen 5-325 mg tablet 1 - 2 tablet PO Q6H PRN (Reason: pain) Qty: 20 0RF Continued acetaminophen 500 mg Capsule 500 mg PO Q6-8H PRN (Reason: Pain) cholecalciferol (vitamin D3) 50 mcg (2,000 unit) tablet 50 mcg PO DAILY Qty: 90 1RF amlodipine 10 mg tablet 10 mg PO DAILY Qty: 90 1RF Rx Instructions: TAKE 1 TABLET DAILY lisinopril 40 mg tablet 40 mg PO DAILY Qty: 90 1RF Discontinued finasteride 5 mg tablet 5 mg PO DAILY tamsulosin 0.4 mg capsule 0.4 mg PO HS
[2024-06-27 16:31] VITALS: BP 150/68; PULSE 66; RESP 18; TEMP 37.2; O2SAT 95
== END 2024-06-27 17:05 | disposition home or self-care (01) ==
LOC: ANHSURGERY 09:00 → ANH3MEDSUR 14:47
PROVIDERS: PCP Family Medicine; Visit Provider Urology
PROC: 0VT08ZZ Resection of Prostate, Via Natural or Artificial Opening Endoscopic (ICD-10-PCS; CPT 52601; principal; 2024-06-26 11:00)
DX: N40.1 Benign prostatic hyperplasia with lower urinary tract symptoms (principal); R33.8 Other retention of urine; N41.1 Chronic prostatitis; N34.2 Other urethritis; N13.8 Other obstructive and reflux uropathy; I10 Essential (primary) hypertension; E53.8 Deficiency of other specified B group vitamins; E55.9 Vitamin D deficiency, unspecified; R73.03 Prediabetes; G47.30 Sleep apnea, unspecified; Z98.890 Other specified postprocedural states
CPT/HCPCS: 52601; 36415; 80048; 85014; 85018; 88305; A9270; J0690; J2405; J2704; J3010; J7120; J7121

== ENCOUNTER 2025-04-09 13:15 | Emergency (ER) | payer MEDICARE, BC, SELFPAY ==
--- NOTE | ~2025-04-09 | XR_ITS ---
EXAMINATION: XR hip LT 2V w AP pelvis DATE: 04/09/2025 14:19 INDICATION: Left hip pain TECHNIQUE: Anteroposterior view of the pelvis and anteroposterior and frog-leg lateral views of the l eft hip were obtained. COMPARISON: None. FINDINGS: Bone alignment is normal. No fracture or suspected osteonecrosis. Mild osteoarthritis at the bilatera l hip and sacroiliac joints. Moderate lumbar spondylosis. IMPRESSION: 1. Mild bilateral hip and sacroiliac osteoarthritis. No acute osseous abnormality. Reviewed, dictated and finalized at location A. IMPRESSION: 1. Mild bilateral hip and sacroiliac osteoarthritis. No acute osseous abnormali ty.
[2025-04-09 13:24] VITALS: BP 168/75; PULSE 57; RESP 18; TEMP 36.9; O2SAT 99
--- OUTSIDE RECORDS SUMMARY | 2025-04-09 13:47 | XMS_ITS ---
Author Name Auto Generated, Auto Generated Organization [facility] ices Address [address] [place] [address] Phone [phone] Care Team Providers Care Tours Captain Name Role Phone Domenica Cano Batsheva Unavailable Flaco Hines Unavailable [phone] Jesus Capone Unavailable [phone] Functional Status No Results Mental Status No Results Allergies and Intolerances Name Onset Date Reaction Severity No Known Allergies (Allergy) SunFeb 07 19:39:00 EDT 2023 Medications Medication Directions Start Date End Date lidocaine 3 % topical cream 1 jazmine CREAM (GRAM) Topical 2 Times Daily Indication: Pain Cleanse tip of penis and apply Lidocaine cream BID PRN SunFeb 27 10:14:00 EDT 2023Feb 27 19:06:00 EDT 2023 lidocaine 3 % topical cream 1 jazmine CREAM (GRAM) Topical PRN 2 Times Daily Indication: Pain Apply to the barboza insertion site PRN BID for pain SunFeb 27 19:06:00 EDT 2023Mar 07 01:00:00 EDT 2023 ciprofloxacin 500 mg tablet 1 tab TABLET Oral 2 Times Daily for 3 Days Indication: UTI Order to extend ABX for extra 3 days SunFeb 27 21:00:00 ED2023Mar 02 20:59:00 EDT 2023 Milk of Magnesia 400 mg/5 mL oral suspension 30mL SUSPENSION, ORAL (FINAL DOSE FORM) Oral PRN 2 Times Daily Indication: Constipation SunFeb 23 13:00:00 EDT 2023Mar 07 01:00:00 EDT 2023 ciprofloxacin 500 mg tablet 1 tab TABLET Oral 2 Times Daily for 7 Days Indication: uti SunFeb 20 09:00:00 EDT 2023Feb 27 08:59:00 EDT 2023 Florajen Acidophilus 20 billion cell capsule 1 cap CAPSULE Oral 2 Times Daily for 14 Days Indication: probiotic SunFeb 21 09:00:00 EDT 2023Mar 07 01:00:00 EDT 2023 cefTRIAXone 1 gram solution for injection 1 gram VIAL (EA) Intramuscular 1 Time Daily for 1 Day Indication: Dx: UTI, leukocytosisMix with lidocaine solution SunFeb 20 07:00:00 EDT 2023Feb 21 06:59:00 EDT 2023 pantoprazole 40 mg tablet,delayed release 1 tablet TABLET, DELAYED RELEASE (ENTERIC COATED) Oral 1 Time Daily Indication: GERD SunFeb 18 14:00:00 EDT 2023Mar 07 01:00:00 EDT 2023 ondansetron 4 mg disintegrating tablet 1 tablet TABLET,DISINTEGRATING Oral PRN Every 6 Hours Indication: Nausea/Vomiting SunFeb 18 14:00:00 EDT 2023Mar 07 01:00:00 EDT 2023 meloxicam 7.5 mg tablet 1 TABLET TABLET Oral 1 Time Daily for 30 Days Give with food. SunFeb 13 13:27:00 EDT 2023Mar 07 01:00:00 EDT 2023 iFerex 150 150 mg iron capsule 1 cap CAPSULE Oral 1 Time Daily Indication: Anemia SunFeb 11 12:31:00 EDT 2023Mar 07 01:00:00 EDT 2023 Mapap (acetaminophen) 500 mg capsule 2 CAPSULES CAPSULE Oral PRN Every 8 Hours Indication: DO NOT EXCEED 3GM/DAY APAP FROM ALL SOURCES* Pain SunFeb 10 14:16:00 EDT 2023Mar 07 01:00:00 EDT 2023 oxyCODONE 5 mg tablet 1 TABLET TABLET Or al PRN Every 4 Hours Indication: FOR PAIN (BREAKTHROUGH PAIN) FOR ,UP TO 30 DOSES SunFeb 09 14:37:00 EDT 2023Mar 07 01:00:00 EDT 2023 Mapap (acetaminophen) 500 mg capsule 2 CAPSULES CAPSULE Oral PRN Every 6 Hours Indication: DO NOT EXCEED 3GM/DAY APAP FROM ALL SOURCES* Pain SunFeb 09 14:38:00 EDT 2023Feb 10 14:17:00 EDT 2023 amLODIPine 5 mg tablet 1 TABLET TABLET O ral Hour Of Sleep Indication: angina SunFeb 09 14:40:00 EDT 2023Mar 07 01:00:00 EDT 2023 traMADoL 50 mg tablet 1 TABLET TABLET Or al PRN Every 6 Hours Indication: FOR PAIN FOR UP TO 42 DOSES SunFeb 09 14:41:00 EDT 2023Mar 07 01:00:00 EDT 2023 TubersoL 5 tub. unit/0.1 mL intradermal injection solution 0.1 ml VIAL (ML) Intradermal 1 Time Weekly for 2 Weeks Indication: TB test 1st injection on admission, then one week after. Read between 48 and 72 hours SunFeb 08 01:00:00 EDT 2023Feb 22 00:59:00 EDT 2023 TubersoL 5 tub. unit/0.1 mL intradermal injection solution Read Results VIAL (ML) Other 1 Time Weekly for 2 Weeks Indication: TB test Read results between 48-72 hours after 1st and 2nd (1 week apart). If positive do chest x-ray. SunFeb 08 01:00:00 EDT 2023Feb 22 00:59:00 EDT 2023 Mapap (acetaminophen) 500 mg capsule 2 CAPSULES CAPSULE Oral PRN Every 6 Hours Indication: DO NOT EXCEED 3GM/DAY APAP FROM ALL SOURCES* Pain SunFeb 07 01:00:00 ED2023Feb 09 14:39:00 EDT 2023 amLODIPine 5 mg tablet 1 TABLET TABLET O ral Hour Of Sleep Indication: angina SunFeb 07 01:00:00 ED2023Feb 09 14:41:00 EDT 2023 aspirin 81 mg tablet,delayed release 1 TABLET TABLET, DELAYED RELEASE (ENTERIC COATED) Oral 2 Times Daily for 30 Days Indication: preventive maintenance SunFeb 07 01:00:00 EDT 2023Mar 07 01:00:00 EDT 2023 cefaDROXiL 500 mg capsule 1 CAPSULE CAPS ULE Oral 2 Times Daily for 10 Days Indication: ABT 25 doses total SunFeb 08 01:00:00 EDT 2023 TuFeb 18 00:59:00 EDT 2023 cholecalciferol (vitamin D3) 50 mcg (2,000 unit) capsule 2 CAPSULES CAPSULE Oral Every Morning Indication: supplement SunFeb 07 01:00:00 ED2023Mar 07 01:00:00 EDT 2023 finasteride 5 mg tablet 1 TABLET TABLET Oral 1 Time Daily Indication: urinary retention SunFeb 07 01:00:00 EDT 2023Mar 07 01:00:00 EDT 2023 lisinopriL 40 mg tablet 1 TABLET TABLET Oral Every Morning Indication: HTN SunFeb 07 01:00:00 EDT 2023Mar 07 01:00:00 EDT 2023 meloxicam 7.5 mg tablet 1 TABLET TABLET Oral 1 Time Daily for 30 Days Indication: inflammation SunFeb 07 01:00:00 EDT 2023 Gwen Feb 13 13:27:00 EDT 2023 oxyCODONE 5 mg tablet 1 TABLET TABLET Or al PRN Every 4 Hours Indication: FOR PAIN (BREAKTHROUGH PAIN) FOR ,UP TO 30 DOSES SunFeb 07 01:00:00 EDT 2023Feb 09 14:39:00 EDT 2023 Stimulant Laxative Plus 8.6 mg-50 mg tablet 2 tablets TABLET Oral 2 Times Daily for 30 Days Indication: constipation SunFeb 07 01:00:00 EDT 2023Mar 07 01:00:00 EDT 2023 tamsulosin 0.4 mg capsule 1 CAPSULE CAPS ULE Oral 1 Time Daily Indication: WITH DINNER urinary retention SunFeb 07 01:00:00 EDT 2023Mar 07 01:00:00 EDT 2023 traMADoL 50 mg tablet 1 TABLET TABLET Or al PRN Every 6 Hours Indication: FOR PAIN FOR UP TO 42 DOSES SunFeb 07 01:00:00 EDT 2023Feb 09 14:42:00 EDT 2023 cefaDROXiL 500 mg capsule 1 CAPSULE CAPS ULE Oral 1 Time Daily for 1 Day Indication: ABT 25 doses total SunFeb 18 02:00:00 EDT 2023Feb 19 01:59:00 EDT 2023 Problems Active Concerns * Presence of urogenital implants* Code: * Start Date: SunFeb 07 00:00:00 EDT 2023 * End Date: * Text: * Broken internal right knee prosthesis, subsequent encounter* Code: * Start Date: SunFeb 07 00:00:00 EDT 2023 * End Date: * Text: * Presence of right artificial knee joint* Code: * Start Date: SunFeb 07 00:00:00 EDT 2023 * End Date: * Text: * senior care (current) use of aspirin* Code: * Start Date: SunFeb 07 00:00:00 EDT 2023 * End Date: * Text: * Obstructive sleep apnea (adult) (pediatric)* Code: * Start Date: SunFeb 07 00:00:00 EDT 2023 * End Date: * Text: * Essential (primary) hypertension* Code: * Start Date: SunFeb 07 00:00:00 EDT 2023 * End Date: * Text: * Other retention of urine* Code: * Start Date: SunFeb 07 00:00:00 EDT 2023 * End Date: * Text: * Other postprocedural complications and disorders of genitourinary system* Code: * Start Date: SunFeb 07 00:00:00 EDT 2023 * End Date: * Text: * Benign prostatic hyperplasia without lower urinary tract symptoms* Code: * Start Date: SunFeb 07 00:00:00 EDT 2023 * End Date: * Text: * Deficiency of other specified B group vitamins* Code: * Start Date: SunFeb 07 00:00:00 EDT 2023 * End Date: * Text: * Vitamin D deficiency, unspecified* Code: * Start Date: SunFeb 07 00:00:00 EDT 2023 * End Date: * Text: * Ventral hernia without obstruction or gangrene* Code: * Start Date: SunFeb 07 00:00:00 EDT 2023 * End Date: * Text: * Personal history of (healed) traumatic fracture* Code: * Start Date: SunFeb 07 00:00:00 EDT 2023 * End Date: * Text: * Presence of other bone and tendon implants* Code: * Start Date: SunFeb 07 00:00:00 EDT 2023 * End Date: * Text: * Dysphasia* Code: * Start Date: SunFeb 07 00:00:00 EDT 2023 * End Date: * Text: * Gastro-esophageal reflux disease without esophagitis* Code: * Start Date: SunFeb 07 00:00:00 EDT 2023 * End Date: * Text: * Pressure ulcer of right heel, unspecified stage* Code: * Start Date: SunFeb 07 00:00:00 EDT 2023 * End Date: * Text: Reason for Referral Past Medical History
--- OUTSIDE RECORDS SUMMARY | 2025-04-09 13:47 | XMS_ITS | Clinical Summary ---
Author Organization [facility] Address [address] [place] [phone] Care Team Providers Care Universal Grinder Tool Name Role Phone Miquel Alford MD Primary Care Provider Allergies No known active allergies Medications lisinopriL (PRINIVIL,ZESTR RI) 40 mg tabletIndicatio ns:hypertension Take 1 tablet (40 mg total) by mouth every morning 3 Active amLODIPine (NORVASC) 5 mg tabletIndicatio ns:hypertension Take 1 tablet (5 mg total) by mouth nightly Active CHOLECALCIFEROL , VITAMIN D3, ORALIndications :Vitamin D Deficiency Take 2 capsules by mouth every morning Active acetaminophen 500 mg capsuleIndicati ons:Pain Take 2 capsules (1,000 mg total) by mouth every 8 (eight) hours 4 Active aspirin 81 mg enteric coated tabletIndicatio ns:Deep Vein Thrombosis Prevention Take 1 tablet (81 mg total) by mouth 2 (two) times a day For 30 days 4 Active finasteride (PROSCAR) 5 mg tabletIndicatio ns:benign prostatic hyperplasia with lower urinary tract sx Take 1 tablet (5 mg total) by mouth daily 4 Active meloxicam (MOBIC) 7.5 mg tabletIndicatio ns:Pain Take 1 tablet (7.5 mg total) by mouth daily for 30 doses 4 Active senna-docusate (PERICOLACE) 8.6-50 mgIndications:c onstipation Take 2 tablets by mouth 2 (two) times a day for 60 doses 4 Active tamsulosin (FLOMAX) 0.4 mg extended release capsuleIndicati ons:Urinary Retention Take 1 capsule (0.4 mg total) by mouth daily with dinner 4 Active oxyCODONE (ROXICODONE) 5 mg immediate release tabletIndicatio ns:Pain Take 1 tablet (5 mg total) by mouth every 4 (four) hours as needed for pain (Breakthrough pain) For breakthrough pain, up to 30 doses 4 Active traMADoL (ULTRAM) 50 mg tablet Take 1 tablet (50 mg total) by mouth every 6 (six) hours as needed for pain For up to 42 doses. 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 Surgical History Surgery Date Site/Laterality Comments SKIN GRAFT TOTAL KNEE ARTHROPLASTY Right 2013 INGUINAL HERNIA REPAIR JOINT REPLACEMENT FLUORO GUIDED ASPIRATION KNEE RIGHT 05/07/2024 Right Medical History Medical History Date Comments Hypertension Sleep apnea Family History Medical History Relation Name Comments Malig Hyperthermia Neg Hx Pseudochol deficiency Neg Hx Social History Tobacco Use Types Packs/Day Years Used Date Smoking Tobacco: Never Smokeless Tobacco: Never Tobacco Cessation:Counseling Given: Not Answered AUDIT-C Answer Date Recorded Q1: How often do you have a drink containing alcohol? Never 02/04/2024 Q2: How many drinks containi ng alcohol do you have on a typical day when you are drinking? Patient does not drink Q3: How often do you have si x or more drinks on one occasion? Never 02/04/2024 Personal Safety Answer Date Recorded Have you ever been in or are you currently in a harmful physical or emotional relationship or is someone making you feel afraid or unsafe? 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 Gender Identity Not on file Sexual Orientation Not on file Obstetrics History Last Filed Vital Signs Vital Sign Reading Time Taken Comments Blood Pressure 156/76 05/07/2024 1:33 PM CDT Pulse 60 05/07/2024 1:33 PM CDT Temperature 37.1 C (98.8 F) 05/07/2024 1:33 PM CDT Respiratory Rate 16 05/07/2024 1:33 PM CDT Oxygen Saturation 96% 05/07/2024 1:33 PM CDT Inhaled Oxygen Concentration - - Weight 83.9 kg (185 lb) 02/04/2024 10:09 PM CDT Height 180.3 cm (5' 11 ) 02/04/2024 10:09 PM CDT Body Mass Index 25.8 02/04/2024 10:09 PM CDT Plan of Treatment Health Maintenance Due Date Last Done Comments Depression Screening 1936 DTaP/Tdap/Td Vaccine (1 - Tdap) 1947 Hepatitis B Screening 1954 Pneumococcal vaccine 65+ (1 of 1 - PCV) 1986 Zoster Vaccine (1 of 2) 1986 Well Visit 65+ 2001 Covid-19 Vaccine ( season) 2024 09/30/2021, 02/28/2021, 02/07/2021 Fall Risk Assessment 02/07/2025 02/08/2024 Influenza Vaccine (Season Ended) 2025 Medical Devices Implanted Type Area Pull Through Hooker Device Identifier Shelf Expiration Date Model / Serial / Lot Knee Right: Knee [employer] Modular Rotate Hinge Knee Axle Femoral 6481-2-120 - [id number] Implanted:Qty: 1 on 02/04/2024 by Aaron Capone MD at [facility] Right: Knee [employer] [id number] 09/28/2026 6481-2-12 0 / / [id number] [employer] Monogram Modular Rotate Hinge Knee Xs-Xl Component Tibial 6481-2-100 - [id number] Implanted:Qty: 1 on 02/04/2024 by Aaron Capone MD at [facility] Right: Knee [employer] [id number] 10/26/2028 6481-2-10 0 / / [id number] [employer] Scorpio 15mm 80mm Cement Femoral Extension Stem Vitallium 1 [place] 6478-6-400 - [id number] Implanted:Qty: 1 on 02/04/2024 by Aaron Capone MD at [facility] Right: Knee [employer] [id number] 12/15/2027 6478-6-40 0 / / [id number] [employer] Scorpio 15mm 80mm Cement Femoral Extension Stem Vitallium 1 [place] 6478-6-400 - [id number] Implanted:Qty: 1 on 02/04/2024 by Aaron Capone MD at [facility] Right: Knee [employer] [id number] 01/15/2028 6478-6-40 0 / / [id number] [employer] Component Fem Xs [id number] Knee Right Modular Rotate Hinge Gmrs Titanium 6481-1-101 - [id number] Implanted:Qty: 1 on 02/04/2024 by Aaron Capone MD at [facility] Right: Knee [employer] [id number] 09/07/2027 6481-1-10 1 / / [id number] [employer] Modular Rotate Hinge Knee S1 Baseplate Tibial 6481-3-110 - [id number] Implanted:Qty: 1 on 02/04/2024 by Aaron Capone MD at [facility] Right: Knee [employer] [id number] 09/27/2028 6481-3-11 0 / / [id number] [employer] Stimulan Rapid Cure Kit Paste Emergency Communications Dispatcher 10cc 20cc Bone Void 345218 - [id number] Implanted:Qty: 1 on 02/04/2024 by Aaron Capone MD at [facility] Right: Knee [employer] [id number] 06/25/2026 263855 / / [id number] [employer]/Ort ho Mcintosh 25mm Plug Hip Femoral 16-21mm Restrictor Bone Cement Sterile 209807 - [id number] Implanted:Qty: 1 on 02/04/2024 by Aaron Capone MD at [facility] Right: Femur [employer]Or tho [id number] 02/06/2032 927134 / / [id number] [employer]/Ort ho Mcintosh 25mm Plug Hip Femoral 16-21mm Restrictor Bone Cement Sterile 149370 - [id number] Implanted:Qty: 1 on 02/04/2024 by Aaron Capone MD at [facility] Right: Tibia [employer]Or [employer] [id number] 03/30/2032 849338 / / [id number] [employer] Simplex P Full Dose Radiopaque Preblend Cement Bone Tobramycin 6197-9-001 - [id number] Implanted:Qty: 3 on 02/04/2024 by Aaron Capone MD at [facility] Right: Tibia [employer] 04/25/2025 6197-9-00 1 / / [id number] [employer] Simplex P Full Dose Radiopaque Preblend Cement Bone Tobramycin 6197-9-001 - [id number] Implanted:Qty: 1 on 02/04/2024 by Aaron Capone MD at [facility] Right: Tibia [employer] 03/25/2025 6197-9-00 1 / / [id number] [employer] Gmrs 10mm Modular Rotate Hinge Proximal S1 S2 Insert Tibial 6481-3-210 - [id number] Implanted:Qty: 1 on 02/04/2024 by Aaron Capone MD at [facility] Right: Knee [employer] [id number] 07/29/2028 6481-3-21 0 / / [id number] [employer] Gmrs Pack Crosslink Knee Component Femoral Polyethylene 6481-2-150 - [id number] Implanted:Qty: 1 on 02/04/2024 by Aaron Capone MD at [facility] Right: Knee [employer] [id number] 10/05/2026 6481-2-15 0 / / [id number] [employer] Triathlon Symmetric B Cone Augment Tibial Tritanium Sterile Latex Free 5549-A-120 - [id number] Implanted:Qty: 1 on 02/04/2024 by Aaron Capone MD at [facility] Right: Knee [employer] [id number] 08/05/2028 5549-A-12 0 / / [id number] Explanted Type Area Pull Through Hooker Device Identifier Shelf Expiration Date Model / Serial / Lot [employer] Pin Fixation 3in Headed 6541-4-004 - [id number] Explanted:Qty: 1 on 02/04/2024 by Aaron Capone MD at [facility] Right: Knee [employer] [id number] 12/31/2028 6541-4-00 4 / / [id number] Insurance MEDICARE [place] O MEDICARE [facility] Address: [address] [address] [place] [address] [employer] OOS Advance Directives For more information, please contact: [phone] * Full Code (Latest Code Status on File) Date Activated Date Inactivated Comments 02/04/2024 10:00 PM 02/08/2024 8:52 PM Care Teams Universal Grinder Tool Relationship Specialty Start Date End Date Miquel Alford MD [address] [facility] [address] [place] [address] PCP - General Family Practice 09/06/23
--- OUTSIDE RECORDS SUMMARY | 2025-04-09 13:47 | XMS_ITS | Referral Summary ---
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 Gender Identity Not on file Sexual Orientation Not on file Last Filed Vital Signs Vital Sign Reading [...] 02/04/2024 10:09 PM CDT Plan of Treatment Not on file Medical Devices Implanted Type Area Emergency Room Physician Device Identifier Shelf Expiration Date Model / Serial / Lot Knee Right: Knee [employer] Modular Rotate Hinge Knee Axle Femoral 6481-2-120 - [id number] Implanted:Qty: 1 on 02/04/2024 by Aaron Capone MD at [facility] Right: Knee [employer] [facility] [id number] 09/28/2026 6481-2-12 0 / / [id number] [employer] Monogram Modular Rotate Hinge Knee Xs-Xl Component Tibial 6481-2-100 - [id number] Implanted:Qty: 1 on 02/04/2024 by Aaron Capone MD at [facility] Right: Knee [employer] [id number] 10/26/2028 6481-2-10 0 / / [id number] [employer] Scorpio 15mm 80mm Cement Femoral Extension Stem Vitallium 1 [place] 6478-6-400 - [id number] Implanted:Qty: 1 on 02/04/2024 by Aaron Capone MD at [facility] Right: Knee [employer] [id number] 12/15/2027 6478-6-40 0 / / [id number] [employer] Scorpio 15mm 80mm Cement Femoral Extension Stem Vitallium 1 [place] 6478-6-400 - [id number] Implanted:Qty: 1 on 02/04/2024 by Aaron Capone MD at [facility] Right: Knee [employer] [facility] [id number] 01/15/2028 6478-6-40 0 / / [id number] [employer] Component Fem Xs [id number] Knee Right Modular Rotate Hinge Gmrs Titanium 6481-1-101 - [id number] Implanted:Qty: 1 on 02/04/2024 by Aaron Capone MD at [facility] Right: Knee [employer] [id number] 09/07/2027 6481-1-10 1 / / [id number] [employer] Modular Rotate Hinge Knee S1 Baseplate Tibial 6481-3-110 - [id number] Implanted:Qty: 1 on 02/04/2024 by Aaron Capone MD at [facility] Right: Knee [employer] [id number] 09/27/2028 6481-3-11 0 / / TDH2D [employer] Stimulan Rapid Cure Kit Paste Director Zone 10cc 20cc Bone Void 254961 - [id number] Implanted:Qty: 1 on 02/04/2024 by Aaron Capone MD at [facility] Right: Knee [employer] [id number] 06/25/2026 805364 / / [id number] [employer]/Ort ho Mcintosh 25mm Plug Hip Femoral 16-21mm Restrictor Bone Cement Sterile 112000 - [id number] Implanted:Qty: 1 on 02/04/2024 by Aaron Capone MD at [facility] Right: Femur [employer]Or [employer] [id number] 02/06/2032 609127 / / [id number] [employer]/Ort ho Mcintosh 25mm Plug Hip Femoral 16-21mm Restrictor Bone Cement Sterile 005399 - [id number] Implanted:Qty: 1 on 02/04/2024 by Aaron Capone MD at [facility] Right: Tibia [employer] [id number] 03/30/2032 657831 / / [id number] [employer] Simplex P Full Dose Radiopaque Preblend Cement Bone Tobramycin 6197-9-001 - [id number] Implanted:Qty: 3 on 02/04/2024 by Aaron Capone MD at [facility] Right: Tibia [employer] 04/25/2025 6197-9-00 1 / / [id number] [employer] Simplex P Full Dose Radiopaque Preblend Cement Bone Tobramycin 6197-9-001 - [id number] Implanted:Qty: 1 on 02/04/2024 by Aaron Capone MD at [facility] Right: Tibia [employer] 03/25/2025 6197-9-00 1 / / [id number] [employer] Gmrs 10mm Modular Rotate Hinge Proximal S1 S2 Insert Tibial 6481-3-210 - [id number] Implanted:Qty: 1 on 02/04/2024 by Aaron Capone MD at [facility] Right: Knee [employer] [id number] 07/29/2028 6481-3-21 0 / / [id number] [employer] Gmrs Pack Crosslink Knee Component Femoral Polyethylene 6481-2-150 - [id number] Implanted:Qty: 1 on 02/04/2024 by Aaron Capone MD at [facility] Right: Knee [employer] [id number] 10/05/2026 6481-2-15 0 / / [id number] [employer] Triathlon Symmetric B Cone Augment Tibial Tritanium Sterile Latex Free 5549-A-120 - [id number] Implanted:Qty: 1 on 02/04/2024 by Aaron Capone MD at [facility] Right: Knee [employer] [id number] 08/05/2028 5549-A-12 0 / / [id number] Explanted Type Area Emergency Room Physician Device Identifier Shelf Expiration Date Model / Serial / Lot [employer] Pin Fixation 3in Headed 6541-4-004 - [id number] Explanted:Qty: 1 on 02/04/2024 by Aaron Capone MD at [facility] Right: Knee [employer] [id number] 12/31/2028 6541-4-00 4 / / [id number] Insurance [employer] OOS MEDICARE [place] [employer] ACC[employer] OOS Advance Directives For more information, please contact: [phone] * Full Code (Latest Code Status on File) Date Activated Date Inactivated Comments 02/04/2024 10:00 PM 02/08/2024 8:52 PM Care Teams Chamber Of Commerce Division Manager Relationship Specialty Start Date End Date Miquel Alford MD [address] [facility] [address] [place] [address] PCP - General Family Practice 09/06/23
--- OUTSIDE RECORDS SUMMARY | 2025-04-09 13:47 | XMS_ITS | Clinical Summary ---
Author Organization [facility] Address [address] [place] [address] Care Team Providers Care Installer Inspector Final Name Role Phone Miquel Alford MD Primary Care Provider Source Comments [facility],non-owned Affiliates and Associated Physician Practices is amultiple site organization consisting of ambulatory clinics and hospital sitesin [place], [place], [place] and [place]. This disclosure is being madepursuant to the Care Everywhere program and may not contain all information available regarding this patient. 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 Gender Identity Not on file Sexual Orientation Not on file Plan of Treatment Health Maintenance Due Date Last Done Comments MEDICARE AWV 12 MONTHS 1936 DTAP/TDAP/TD VACCINES (1 - Tdap) 1955 PNEUMOCOCCAL VACCINE 50+ (1 of 1 - PCV) 1986 ZOSTER VACCINE (1 of 2) 1986 Respiratory Syncytial Virus (RSV) Vaccine Pt: or over 60 yrs (1 - 1-dose 75+ series) 2011 COVID-19 VACCINE ( - 2023-2 5 season) 2024 DEPRESSION SCREENING 11/26/2024 INFLUENZA VACCINE (Season Ended) 2025 HEPATITIS B VACCINE Aged Out No longe r eligible based on patient's age to complete this topic HIB VACCINE Aged Out No longer eligi ble based on patient's age to complete this topic HPV VACCINE Aged Out No longer eligi ble based on patient's age to complete this topic MENINGOCOCCAL (Group B) VACC INE SHARED DECISION-MAKING Aged Out No longer eligibl e based on patient's age to complete this topic MENINGOCOCCAL GROUPS A/C/Y/W VACCINE Aged Out No longer eligible b ased on patient's age to complete this topic Insurance MEDICARE COUNT INCLUDES THE [facility] * Guarantor: JOSEFINASP Account Type Relation to Patient Date of Phone Billing Address Personal/Family [address] [place] [phone] MEDICARE [facility] * Guarantor: SP ROCHA Account Type Relation to Patient Date of Phone Billing Address Personal/Family [address] [place], [place] [phone] MEDICARE COUNT INCLUDES THE [facility] Care Teams Installer Inspector Final Relationship Specialty Start Date End Date Miquel Alford MD [address] [place] [phone] PCP - General 05/12/21
--- OUTSIDE RECORDS SUMMARY | 2025-04-09 13:47 | XMS_ITS | Encounter Summary ---
Author Organization [facility] Address [address] [facility] [place] [address] Care Team Providers Care National Recruiter Name Role Phone Miquel Alford MD Primary Care Provider Encounter Details Date Type Department Care Team (Late st Contact Info) Description 10/21/2024 Lab Requisition [facility] - DermPath Lab [address] [facility] [place] [address] Vinicius Baez MD [address] [place] [address] Social History Tobacco Use Types Packs/Day Years Used Date Smoking Tobacco: Never Assessed Sex and Gender Information Value Date Recorded Sex Assigned at Not on file 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 Gender Identity Not on file Sexual Orientation Not on file documented as of this encounter Plan of Treatment Not on file documented as of this encounter Procedures Procedure Name Priority Date/Time Associated Diagnosis Comments DERMATOPATHOLOGY Routine 10/21/2024 3:33 AM FARM CONSULTANT documented in this encounter Results * DERMATOPATHOLOGY (10/21/2024 3:33 AM FARM CONSULTANT) Case Report Dermatopathology Report Case: [id number] Authorizing Provider: Vinicius Baez MD Collected: 10/21/2024 03:33 AM Ordering Location: [facility] - Received: 10/21/2024 02:05 PM DermPath Lab Pathologist: Alesha Valentino MD Specimens: A) - Skin, left lateral mid upper arm B) - Skin, right cheek 12:58 PM FARM CONSULTANT DERMATOPATHOLOGY LABORATORY Final Diagnosis Specimen A. 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 The specimen consists of a shave removal measuring 68n82y6 mm. Jar 0. Specimen B: Received is one formalin filled container labeled with the patient's name and designated right cheek. The specimen consists of a shave biopsy measuring 7x6x7 mm. Jar 0. 12:58 PM [facility] DERMATOPATHOLOGY LABORATORY Microscopic Description Specimen A. SKIN, left lateral mid upper arm: Arising in the epidermis and extending into the dermis there are irregularly shaped aggregates of keratinocytes showing evidence of premature cornification. This lesion is present at the base of the specimen. Specimen B. SKIN, right cheek: The epidermis shows parakeratosis, full thickness disorderly maturation of keratinocytes, mitoses at different levels, and dyskeratotic cells. There is a column of marked compact hyperkeratosis. 12:58 PM [facility] DERMATOPATHOLOGY LABORATORY Disclaimer An external and internal positive and negative controls are appropriate for the histochemical, immunohistochemical and immunofluorescence stain(s) in this case (if any), except where stated explicitly. The performance characteristics of the stain(s) cited in this report were developed and its performance characteristic determined by the Dermatopathology Laboratory at [facility], directed by Dr. Sean Asif. These tests need not be, and therefore are not, approved by the [place] Food and Drug Administration. The tests are used for clinical purposes. Billing Codes Specimen Charges Stain Charges 53146 37454 1 1 12:58 PM [facility] DERMATOPATHOLOGY LABORATORY Embedded Images 12:58 PM [facility] DERMATOPATHOLOGY LABORATORY Pathology/Cytology TISSUE SPECIMEN FROM SKIN / Unknown 10/21/2024 3:33 AM FARM CONSULTANT 10/21/2024 2:05 PM FARM CONSULTANT Miscellaneous samples (specimen) TISSUE SPECIMEN FROM SKIN / Unknown 10/21/2024 3:33 AM FARM CONSULTANT 10/21/2024 2:05 PM FARM CONSULTANT Vinicius Baez MD LAB - PATHOLOGY/CYTOLOGY ORD ERABLES Final Result DERMATOPATHOLOGY LABORATORY [facility] - Department of Dermatology [facility] Specialized Medicine [address] [place] [address], [address] [phone] documented in this encounter Visit Diagnoses Not on filedocumented in this encounter Care Teams National Recruiter Relationship Specialty Start Date End Date Miquel Alford MD [address] [place] [address] PCP - General 05/12/21 documented as of this encounter
--- OUTSIDE RECORDS SUMMARY | 2025-04-09 13:47 | XMS_ITS ---
Author Name Auto Generated, Auto Generated Organization [facility] ices Address [address] [place] [address] Phone [phone] Care Team Providers Care Survey Data Technician Name Role Phone Domenica Cano Batsheva Unavailable [phone] Unavailable [phone] Jesus Capone Unavailable Functional Status No Results Mental Status No [...] 2023 * End Date: * Text: * shelter (current) use of aspirin* Code: * Start [...]
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
[2025-04-09] MEDS: ACETAMINOPHEN 325 MG TABLET 650 MG PO (14:25)
[2025-04-09] MEDS: LIDOCAINE 5% PATCH 1 PATCH TRANSDERM (14:25)
[2025-04-09 14:30] VITALS: BP 168/82; PULSE 82; RESP 16; TEMP 36.6; O2SAT 98
[2025-04-09 15:34] VITALS: BP 174/88; PULSE 86; RESP 18; TEMP 36.6; O2SAT 96
== END 2025-04-09 15:43 | disposition home or self-care (01) ==
PROVIDERS: Emergency Provider Physician Assistant; PCP Family Medicine
DX: M16.12 Unilateral primary osteoarthritis, left hip (principal); L89.301 Pressure ulcer of unspecified buttock, stage 1; I10 Essential (primary) hypertension
CPT/HCPCS: 73502; 99283; A9270

== ENCOUNTER 2025-04-17 09:00 | Outpatient (CLI) | payer MEDICARE, BC, SELFPAY ==
--- OUTSIDE RECORDS SUMMARY | 2025-04-17 09:05 | XMS_ITS | Clinical Summary ---
Author Organization [facility] Address [address] [place] [address] Care Team Providers Care Policy Change Clerk Name Role Phone Miquel Alford MD Primary Care Provider Source Comments [facility],non-owned Affiliates and Associated Physician Practices is amultiple site organization consisting of ambulatory clinics and hospital sitesin [place], [place], [place] and [place]. This disclosure is being madepursuant to the Care Everywhere program and may not contain all information available regarding this patient. Last updated 18.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 Gender Identity Not on file Sexual Orientation [...] age to complete this topic Insurance MEDICARE [facility] * Guarantor: JOSEFINASP Account Type Relation to Patient Date of Phone Billing Address Personal/Family [address] [place] [phone] [facility] * Guarantor: SP ROCHA Account Type Relation to Patient Date of Phone Billing Address Personal/Family [address] [place], [place] [id number] MEDICARE [facility] Care Teams Policy Change Clerk Relationship Specialty Start Date End Date Miquel Alford MD [address] [place] [phone] PCP - General 05/12/21
--- OUTSIDE RECORDS SUMMARY | 2025-04-17 09:05 | XMS_ITS | Encounter Summary ---
Author Organization [facility] Address [address] [place] [address] Care Team Providers Care Device Sales Consultant Name Role Phone Miquel Alford MD Primary Care Provider Encounter Details Date Type Department Care Team (Late st Contact Info) Description 10/21/2024 Lab Requisition [facility] - DermPath Lab [address] [place] [address] Vinicius Baez MD [address] [place] [address] Social History Tobacco Use Types Packs/Day Years Used Date Smoking Tobacco: Never Assessed Sex and Gender Information Value Date Recorded Sex Assigned at Not on file 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 Gender Identity Not on file Sexual Orientation Not on file documented as of this encounter Plan of Treatment Not on file documented as of this encounter Procedures Procedure Name Priority Date/Time Associated Diagnosis Comments DERMATOPATHOLOGY Routine 10/21/2024 3:33 AM COMPUTER NUMERICAL CONTROL PROGRAMMER documented in this encounter Results * DERMATOPATHOLOGY (10/21/2024 3:33 AM COMPUTER NUMERICAL CONTROL PROGRAMMER) Case Report Dermatopathology Report Case: [id number] Authorizing Provider: Vinicius Baez MD Collected: 10/21/2024 03:33 AM Ordering Location: [facility] - Received: 10/21/2024 02:05 PM DermPath Lab Pathologist: Alesha Valentino MD Specimens: A) - Skin, left lateral mid upper arm B) - Skin, right cheek 12:58 PM COMPUTER NUMERICAL CONTROL PROGRAMMER DERMATOPATHOLOGY LABORATORY Final Diagnosis Specimen A. 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 The specimen consists of a shave removal measuring [id number] mm. Jar 0. Specimen B: Received is one formalin filled container labeled with the patient's name and designated right cheek. The specimen consists of a shave biopsy measuring 7x6x7 mm. Jar 0. 12:58 PM [facility] DERMATOPATHOLOGY LABORATORY Microscopic Description Specimen A. SKIN, [...] column of marked compact hyperkeratosis. 12:58 PM [facility] DERMATOPATHOLOG[facility]ORATORY Disclaimer An external and internal positive and negative controls are appropriate for the histochemical, immunohistochemical and immunofluorescence stain(s) in this case (if any), except where stated explicitly. The performance characteristics of the stain(s) cited in this report were developed and its performance characteristic determined by the Dermatopathology Laboratory at [facility], directed by Dr. Sean Asif. These tests need not be, and therefore are not, approved by the [place] Food and Drug Administration. The tests are used for clinical purposes. Billing Codes Specimen Charges Stain Charges 69602 [id number] 1 1 12:58 PM [facility]ERMATOPATHOLOG[facility] Embedded Images 12:58 PM [facility]MAT[facility] Pathology/Cytology TISSUE SPECIMEN FROM SKIN / Unknown 10/21/2024 3:33 AM COMPUTER NUMERICAL CONTROL PROGRAMMER 10/21/2024 2:05 PM COMPUTER NUMERICAL CONTROL PROGRAMMER Miscellaneous samples (specimen) TISSUE SPECIMEN FROM SKIN / Unknown 10/21/2024 3:33 AM COMPUTER NUMERICAL CONTROL PROGRAMMER 10/21/2024 2:05 PM COMPUTER NUMERICAL CONTROL PROGRAMMER Vinicius Baez MD LAB - PATHOLOGY/CYTOLOGY ORD ERABLES Final Result DERMATOPATHOLOGY LABORATORY [facility] - Department of Dermatology [facility] [address] [place] [address], [address] [phone] documented in this encounter Visit Diagnoses Not on filedocumented in this encounter Care Teams Device Sales Consultant Relationship Specialty Start Date End Date Miquel Alford MD [address] [place] [address] PCP - General 05/12/21 documented as of this encounter
--- OUTSIDE RECORDS SUMMARY | 2025-04-17 09:05 | XMS_ITS ---
Author Name Auto Generated, Auto Generated Organization [facility] ices Address [address] [place] [address] Phone [phone] Care Team Providers Care Photographer Helper Name Role Phone Domenica Cano Batsheva Unavailable Flaco Hines Unavailable [phone] Jesus Capone Unavailable Functional Status No Results [...] * End Date: * Text: * senior living (current) use of aspirin* Code: * Start [...]
--- OUTSIDE RECORDS SUMMARY | 2025-04-17 09:05 | XMS_ITS | Clinical Summary ---
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 Gender Identity Not on file Sexual Orientation [...] Ended) 2025 Medical Devices Implanted Type Area Report Clerk Device Identifier Shelf Expiration Date Model / Serial / Lot Knee Right: Knee [employer] Modular Rotate Hinge Knee Axle Femoral 6481-2-120 - [id number] Implanted:Qty: 1 on 02/04/2024 by Aaron Capone MD at [facility] Right: Knee [employer] [id number] 09/28/2026 6481-2-12 0 / / [id number] [employer] Monogram Modular Rotate Hinge Knee Xs-Xl Component Tibial 6481-2-100 - [id number] Implanted:Qty: 1 on 02/04/2024 by Aaron Capone MD at [facility] Right: Knee [employer] [id number] 10/26/2028 6481-2-10 0 / / [id number] [employer] Scorp[place] 15mm 80mm Cement Femoral Extension Stem Vitallium 1 [place] 6478-6-400 - [id number] Implanted:Qty: 1 on 02/04/2024 by Aaron Capone MD at [facility] Right: Knee [employer] [id number] 12/15/2027 6478-6-40 0 / / [id number] [employer] [place] 15mm 80mm Cement Femoral Extension Stem Vitallium 1 [place] 6478-6-400 - [id number] Implanted:Qty: 1 on 02/04/2024 by Aaron Capone MD at [facility] Right: Knee [employer] [id number] 01/15/2028 6478-6-40 0 / / [id number] [employer] Component Fem Xs [id number] Knee Right Modular Rotate Hinge Gmrs Titanium 6481-1-101 - [id number] Implanted:Qty: 1 on 02/04/2024 by Aaron Capone MD at [facility] Right: Knee [employer] [id number] 09/07/2027 6481-1-10 1 / / [id number] [employer] Modular Rotate Hinge Knee S1 Baseplate Tibial 6481-3-110 - [id number] Implanted:Qty: 1 on 02/04/2024 by Aaron Capone MD at [facility] Right: Knee [employer] [id number] 09/27/2028 6481-3-11 0 / / [id number] [employer] Stimulan Rapid Cure Kit Paste Service Sprinkler Helper 10cc 20cc Bone Void 979646 - [id number] Implanted:Qty: 1 on 02/04/2024 by Aaron Capone MD at [facility] Right: Knee [employer] [id number] 06/25/2026 889328 / / [id number] [employer]Rich[employer]/Ort ho Mcintosh 25mm Plug Hip Femoral 16-21mm Restrictor Bone Cement Sterile 840285 - [id number] Implanted:Qty: 1 on 02/04/2024 by Aaron Capone MD at [facility] Right: Femur [employer]/Or tho [id number] 02/06/2032 199574 / / [id number] [employer]/Ort ho Mcintosh 25mm Plug Hip Femoral 16-21mm Restrictor Bone Cement Sterile 509638 - [id number] Implanted:Qty: 1 on 02/04/2024 by Aaron Capone MD at [facility] Right: Tibia [employer]Or tho [id number] 03/30/2032 485458 / / [id number] [employer] Simplex P Full Dose Radiopaque Preblend Cement Bone Tobramycin 6197-9-001 - [id number] Implanted:Qty: 3 on 02/04/2024 by Aaron Capone MD at [facility] Right: Tibia [employer] 04/25/2025 6197-9-00 1 / / [id number] [employer] Simplex P Full Dose Radiopaque Preblend Cement Bone Tobramycin 6197-9-001 - [id number] Implanted:Qty: 1 on 02/04/2024 by Aaron Capone MD at [facility] Right: Tibia [employer] 03/25/2025 6197-9-00 1 / / [id number] [employer] Gmrs 10mm Modular Rotate Hinge Proximal S1 S2 Insert Tibial 6481-3-210 - [id number] Implanted:Qty: 1 on 02/04/2024 by Aaron Capone MD at [facility] Right: Knee [employer] [id number] 07/29/2028 6481-3-21 0 / / [id number] [employer] Gmrs Pack Crosslink Knee Component Femoral Polyethylene 6481-2-150 - [id number] Implanted:Qty: 1 on 02/04/2024 by Aaron Capone MD at [facility] Right: Knee [employer] [id number] 10/05/2026 6481-2-15 0 / / [id number] [employer] Triathlon Symmetric B Cone Augment Tibial Tritanium Sterile Latex Free 5549-A-120 - [id number] Implanted:Qty: 1 on 02/04/2024 by Aaron Capone MD at [facility] Right: Knee [employer] [id number] 08/05/2028 5549-A-12 0 / / [id number] Explanted Type Area Report Clerk Device Identifier Shelf Expiration Date Model / Serial / Lot [employer] Pin Fixation 3in Headed 6541-4-004 - [id number] Explanted:Qty: 1 on 02/04/2024 by Aaron Capone MD at [facility] Right: Knee [employer] [id number] 12/31/2028 6541-4-00 4 / / [id number] Insurance MEDICARE [place] MEDICARE [employer] OOS Advance Directives For more information, please contact: [phone] * Full Code (Latest Code Status on File) Date Activated Date Inactivated Comments 02/04/2024 10:00 PM 02/08/2024 8:52 PM Care Teams Electric Locomotive Firer/Fireman Relationship Specialty Start Date End Date Miquel Alford MD [address] [facility] [address] [place] [address] PCP - General Family Practice 09/06/23
--- OUTSIDE RECORDS SUMMARY | 2025-04-17 09:05 | XMS_ITS ---
Author Name Auto Generated, Auto Generated Organization [facility] Address [address] [place] [address] Phone [phone] Care Team Providers Care Drafter Plumbing Name Role Phone Domenica Cano Batsheva Unavailable Flaco Hines Unavailable [phone] Jesus Capone Unavailable [phone] Functional Status No Results Mental Status No [...] 2023 * End Date: * Text: * penitentiary (current) use of aspirin* Code: * Start [...]
--- OUTSIDE RECORDS SUMMARY | 2025-04-17 09:05 | XMS_ITS | Referral Summary ---
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 Gender Identity Not on file Sexual Orientation [...] on file Medical Devices Implanted Type Area Pl Sql Developer Device Identifier Shelf Expiration Date Model / Serial / Lot Knee Right: Knee [employer] Modular Rotate Hinge Knee Axle Femoral 6481-2-120 - [id number] Implanted:Qty: 1 on 02/04/2024 by Aaron Capone MD at [facility] Right: Knee [employer] [id number] 09/28/2026 6481-2-12 0 / / [id number] [employer] Monogram Modular Rotate Hinge Knee Xs-Xl Component Tibial 6481-2-100 - [id number] Implanted:Qty: 1 on 02/04/2024 by Aaron Capone MD at [facility] Right: Knee [employer] [id number] 10/26/2028 6481-2-10 0 / / [id number] [employer] Scorpio 15mm 80mm Cement Femoral Extension Stem Vitallium 1 Sargeant 6478-6-400 - [id number] Implanted:Qty: 1 on 02/04/2024 by Aaron Capone MD at [facility] Right: Knee [employer] [id number] 12/15/2027 6478-6-40 0 / / [id number] [employer] Scorpio 15mm 80mm Cement Femoral Extension Stem Vitallium 1 Sargeant 6478-6-400 - [id number] Implanted:Qty: 1 on 02/04/2024 by Aaron Capone MD at [facility] Right: Knee [employer] [id number] 01/15/2028 6478-6-40 0 / / [id number] [employer] Component Fem Xs [id number] Knee Right Modular Rotate Hinge Gmrs Titanium 6481-1-101 - [id number] Implanted:Qty: 1 on 02/04/2024 by Aaron Capone MD at [facility] Right: Knee [employer] [id number] 09/07/2027 6481-1-10 1 / / [id number] [employer] Modular Rotate Hinge Knee S1 Baseplate Tibial 6481-3-110 - [id number] Implanted:Qty: 1 on 02/04/2024 by Aaron Capone MD at [facility] Right: Knee [employer] [id number] 09/27/2028 6481-3-11 0 / / [id number] [employer] Stimulan Rapid Cure Kit Paste Electrical Supervisor 10cc 20cc Bone Void 735134 - [id number] Implanted:Qty: 1 on 02/04/2024 by Aaron Capone MD at [facility] Right: Knee [employer] [id number] 06/25/2026 [id number] / / [id number] [employer]Ort [employer] Mcintosh 25mm Plug Hip Femoral 16-21mm Restrictor Bone Cement Sterile 369697 - [id number] Implanted:Qty: 1 on 02/04/2024 by Aaron Capone MD at [facility] Right: Femur [employer]Or [employer] [id number] 02/06/2032 916211 / / [id number] [employer]osh 25mm Plug Hip Femoral 16-21mm Restrictor Bone Cement Sterile 257583 - [id number] Implanted:Qty: 1 on 02/04/2024 by Aaron Capone MD at [facility] Right: Tibia [employer] [id number] 03/30/2032 [id number] / / [id number] [employer] Simplex P Full Dose Radiopaque Preblend Cement Bone Tobramycin 6197-9-001 - [id number] Implanted:Qty: 3 on 02/04/2024 by Aaron Capone MD at [facility] Right: Tibia [employer] 04/25/2025 6197-9-00 1 / / [id number] [employer] Simplex P Full Dose Radiopaque Preblend Cement Bone Tobramycin 6197-9-001 - [id number] Implanted:Qty: 1 on 02/04/2024 by Aaron Capone MD at [facility] Right: Tibia [employer] 03/25/2025 6197-9-00 1 / / [id number] [employer] Gmrs 10mm Modular Rotate Hinge Proximal S1 S2 Insert Tibial 6481-3-210 - [id number] Implanted:Qty: 1 on 02/04/2024 by Aaron Capone MD at [facility] Right: Knee [employer] [id number] 07/29/2028 6481-3-21 0 / / [id number] [employer] Gmrs Pack Crosslink Knee Component Femoral Polyethylene 6481-2-150 - [id number] Implanted:Qty: 1 on 02/04/2024 by Aaron Capone MD at [facility] Right: Knee [employer] [id number] 10/05/2026 6481-2-15 0 / / [id number] [employer] Triathlon Symmetric B Cone Augment Tibial Tritanium Sterile Latex Free 5549-A-120 - [id number] Implanted:Qty: 1 on 02/04/2024 by Aaron Capone MD at [facility] Right: Knee [employer] [id number] 08/05/2028 5549-A-12 0 / / [id number] Explanted Type Area Pl Sql Developer Device Identifier Shelf Expiration Date Model / Serial / Lot [employer] Pin Fixation 3in Headed 6541-4-004 - [id number] Explanted:Qty: 1 on 02/04/2024 by Aaron Capone MD at [facility] Right: Knee [employer] [id number] 12/31/2028 6541-4-00 4 / / [id number] Insurance [employer] OOS MEDICARE [employer] ACCESS OOS Advance Directives For more information, please contact: [phone] * Full Code (Latest Code Status on File) Date Activated Date Inactivated Comments 02/04/2024 10:00 PM 02/08/2024 8:52 PM Care Teams Facilities Mechanical Design Engineer Relationship Specialty Start Date End Date Miquel Alford MD [address] [facility] [address] [place] [address] PCP - General Family Practice 09/06/23
[2025-04-17 12:27] LABS: Basophils Percent Auto 0.3 % (0.2-1.2); Eosinophils Absolute Auto 0.3 K/mm3 (0-0.3); Eosinophils Percent Auto 2.2 % (0-4.4); Hematocrit 37.1 % (42.0-52.0); Hemoglobin 11.4 g/dL (14.0-18.0); Immature Granulocyte Absolute 0.05 K/mm3 (0.00-0.031); Immature Granulocyte Percent A 0.4 % (0-0.5); Lymphocytes Absolute Auto 1.76 K/mm3 (0.9-3.2); Lymphocytes Percent Auto 15.3 % (18.3-44.2); Mean Corpuscular HGB Conc 30.7 g/dl (32-36); Mean Corpuscular Hemoglobin 27.1 pg (26-34); Mean Corpuscular Volume 88.3 fl (80-100); Mean Platelet Volume 8.8 fl (7.4-10.4); Neutrophils Absolute Auto 8.3 K/mm3 (1.3-6.7); Neutrophils Percent Auto 72.8 % (45.5-73.1); Platelet Count Result 335 k/mm3 (150-375); Red Cell Distribution Width 15.7 % (11.5-14.5); White Blood Count 11.5 K/mm3 (4.5-10.0)
[2025-04-17 12:47] LABS: Alanine Aminotransferase 14 U/L (6-50); Albumin Level 3.8 g/dL (3.5-5.1); Alkaline Phosphatase 129 U/L (38-126); Anion Gap 8 mmol/L (4-12); Aspartate Amino Transferase 41 U/L (17-59); Bilirubin,Total 0.8 mg/dL (0.2-1.3); Blood Urea Nitrogen 21 mg/dL (9-20); Calcium 8.8 mg/dL (8.4-10.2); Carbon Dioxide 28 mmol/L (22-30); Chloride 104 mmol/L (98-107); Cholesterol 138 mg/dL (0-200); Estimated Glomerular Filt Rate > 60; Glucose 95 mg/dL (65-110); HDL Direct 37 mg/dL; Potassium 4.4 mmol/L (3.4-5.0); Sodium 140 mmol/L (137-145); Triglycerides 77 mg/dL (<150)
[2025-04-17 12:59] LABS: LDL Cholesterol Direct 64 mg/dL
[2025-04-17 13:48] LABS: Vitamin D 25 Hydroxy 61.5 ng/mL
[2025-04-17 13:56] LABS: Iron 34 ug/dL (49-181)
[2025-04-17 14:03] LABS: Percent Iron Saturation 11 % (20-50)
[2025-04-17 14:06] LABS: Folic Acid 6.2 ng/mL (2.76->20)
[2025-04-17 14:43] LABS: Free T4 Free Thyroxine Reflex 1.32 ng/dL (0.78-2.19)
[2025-04-17 17:51] LABS: Hemoglobin A1C 5.9 % (<5.7)
[2025-04-18 06:11] LABS: Total Triiodothyronine (T3) 0.97 NG/ML (0.82-1.58)
== END 2025-04-17 09:01 | disposition home or self-care (01) ==
LOC: ANHGOSHLAB 09:02
PROVIDERS: PCP Family Medicine; Visit Provider Family Medicine
DX: R73.03 Prediabetes (principal); I10 Essential (primary) hypertension; D64.9 Anemia, unspecified; E55.9 Vitamin D deficiency, unspecified; E78.5 Hyperlipidemia, unspecified
CPT/HCPCS: 36415; 80053; 80061; 82306; 82607; 82746; 83036; 83540; 83550; 84439; 84443; 84480; 85025